=== PATIENT | female | born 1955 | race Caucasian/White ===

== ENCOUNTER 2016-10-04 14:39 | Emergency (ER) | payer OTHER ==
--- NOTE | 2016-10-04 15:31 | EDDOCDS ---
Physician Documentation [facility] Name: Rose Marie Kline Age: 61 yrs Sex: Female : 1955 Arrival Date: 10/04/2016 Time: 14:39 Bed TR7 Private MD: MADDISON MASTERS Disposition: 10/04/16 15:23 Discharged to Home/Self Care. Impression: Pain in left wrist - tendinitis, possible mild carpal tunnel syndrome. - Condition is Stable. - Discharge Instructions: Wrist Pain, [id number]. - Prescriptions for indomethacin 50 mg Oral Capsule - take 1 capsule by ORAL route 3 times per day with food; 15 capsule. - Medication Reconciliation, Local Pharmacy Hours form. - Follow up: MADDISON MASTERS; When: 1 week; Reason: Recheck today's complaints. - Problem is new. - Symptoms are unchanged. Historical: - Allergies: Ceftin (Rash, Anaphylaxis); Tylenol-Codeine #3 (Anaphylaxis); Latuda (Anaphylaxis, Hives); - Home Meds: 1. metformin 500 mg Oral tab 2 times per day 2. lisinopril 10 mg oral tab 3. Lipitor 10 mg Oral tab 1 tab once daily - PMHx: Hypertension; Diabetes - NIDDM: controlled; Hypercholesterolemia; - PSHx: D & C; Hysterectomy; Tonsillectomy; - Social history: Smoking status: Patient states former smoker of tobacco. No barriers to communication noted, The patient speaks fluent Latvian. - : The pt / caregiver states he / she is not on anticoagulants. Home medication list is obtained from the patient. - Exposure Risk Screening:: None identified. Vital Signs: 10/04 14:41 BP 149 / 69; Pulse 78; Resp 18; Temp 97.5(O); Pulse Ox 97% on R/A; Weight 107.05 kg / ct3 236 lbs (R); Height 5 ft. 6 in. (167.64 cm) (R); Pain 10/10; 14:41 Body Mass Index 38.09 (107.05 kg, 167.64 cm) ct3 Signatures: Noreen Chang RN RN jjBryan Begum PA-C PANedra ar2 Francoise LandaRN RN rs3 MTDD
--- NOTE | 2016-10-04 15:31 | EDDOCDS ---
Nurse's Notes [facility] Name: Rose Marie Kline Age: 61 yrs Sex: Female : 1955 Arrival Date: 10/04/2016 Time: 14:39 Bed TR7 Private MD: MADDISON MASTERS Diagnosis: Pain in left wrist-tendinitis, possible mild carpal tunnel syndrome Presentation: 10/04 14:43 Presenting complaint: Patient states: L wrist pain for 10 days. getting worse rs3 progressively. no known injury. taken Tylenol without any relief. Adult Sepsis Screening: The patient does not have new or worsening altered mentation. Patient's respiratory rate is less than 22. Systolic blood pressure is greater than 100. Patient has a qSOFA score of 0- Negative Sepsis Screen. Suicide/Homicide risk assessment- the patient denies having any suicidal and/or homicidal ideations and does not present with any other emotional, behavioral or mental health complaints. Status: Patient is not a community service officer coordinator or dependent. Transition of care: patient was not received from another setting of care. 14:43 Acuity: HUNG Level 4 rs3 14:43 Method Of Arrival: Wheelchair rs3 Triage Assessment: 14:47 General: Appears in no apparent distress. Pain: Location: left hand. HIV screening NA rs3 for this visit Offered previously. Musculoskeletal: No deficits noted. Historical: - Allergies: Ceftin (Rash, Anaphylaxis); Tylenol-Codeine #3 (Anaphylaxis); Latuda (Anaphylaxis, Hives); - Home Meds: 1. metformin 500 mg Oral tab 2 times per day 2. lisinopril 10 mg oral tab 3. Lipitor 10 mg Oral tab 1 tab once daily - PMHx: Hypertension; Diabetes - NIDDM: controlled; Hypercholesterolemia; - PSHx: D & C; Hysterectomy; Tonsillectomy; - Social history: Smoking status: Patient states former smoker of tobacco. No barriers to communication noted, The patient speaks fluent Italian. - : The pt / caregiver states he / she is not on anticoagulants. Home medication list is obtained from the patient. - Exposure Risk Screening:: None identified. Screenin:29 Screening information is obtained from the patient. Fall risk: No risks identified. jjr Assistance ADL's: requires no assistance with activities of daily living. Abuse/DV Screen: The patient / caregiver reports he/she is: not in a situation that causes fear, pain or injury. Nutritional screening: No deficits noted. Advance Directives: There is no active DNR order. home support is adequate. Assessment: 15:29 General: Appears in no apparent distress, obese, well nourished, well groomed, Behavior jjr is appropriate for age. Musculoskeletal: No deformity noted Reports pain in dorsal aspect of left wrist and palmar aspect of left wrist. Vital Signs: 14:41 BP 149 / 69; Pulse 78; Resp 18; Temp 97.5(O); Pulse Ox 97% on R/A; Weight 107.05 kg ct3 (R); Height 5 ft. 6 in. (167.64 cm) (R); Pain 10/10; 14:41 Body Mass Index 38.09 (107.05 kg, 167.64 cm) ct3 Vitals: 14:41 Log In Time: October 04, 2016 at 14:40. ct3 ED Course: 14:39 Patient visited by Giana Medina PCA. ct3 14:39 Patient moved to Waiting ct3 14:40 MADDISON MASTERS is Private Physician. ct3 14:42 Patient visited by Giana Medina PCA. ct3 14:42 Patient moved to Pre RCE ct3 14:44 Triage Initiated rs3 14:53 Patient moved to Triage 2 ar3 15:00 Bryan Bautista PA-C is PHCP. ar2 15:00 Marcel Gtz MD is Attending Physician. ar2 15:00 Patient visited by Bryan Bautista PA-C. ar2 15:23 MADDISON MASTERS is Referral Physician. ar2 15:28 Patient moved to TR1 jjr 15:29 Patient moved to TR7 ar3 15:29 The patient / caregiver is instructed regarding the plan of care and ED course. jjr 15:29 No IV's were initiated during this patient's visit. No procedures done that require jjr assistance. Order Results: There are currently no results for this order. Outcome: 15:23 Discharge ordered by Provider. ar2 15:29 Discharge Assessment: patient administered narcotics - no. The following High Risk jjr Discharge criteria are identified: None. Discharged to home ambulatory, with family. Condition: stable. Discharge instructions given to patient, Instructed on discharge instructions, follow up and referral plans. medication usage, angelo wrap use Demonstrated understanding of instructions, medications, Prescriptions given X 1. No special radiology studies were completed. Property sent home with patient. 15:30 Patient left the ED. luis a Signatures: Noreen Chang RN RN jjr Bryan Bautista, GAURAV PANedra ar2 Francoise Landa RN RN rs3 Rocío Rivera, PLANT TECHNICIAN/CONTROL ROOM OPERATOR PLANT TECHNICIAN/CONTROL ROOM OPERATOR ar3 Giana Medina, PLANT TECHNICIAN/CONTROL ROOM OPERATOR PLANT TECHNICIAN/CONTROL ROOM OPERATOR ct3 MTDD
--- NOTE | 2016-10-06 16:31 | EDDOCDS ---
Nurse's Notes [facility] Name: Rose Marie Kline Age: 61 yrs Sex: Female : 1955 Arrival Date: 10/04/2016 Time: 14:39 Bed TR7 Private MD: MADDISON MASTERS Diagnosis: Pain in left wrist-tendinitis, possible mild carpal tunnel syndrome Presentation: 10/04 14:43 Presenting complaint: Patient states: L wrist pain for 10 days. getting worse rs3 progressively. no known injury. taken Tylenol without any relief. Adult Sepsis Screening: The patient does not have new or worsening altered mentation. Patient's respiratory rate is less than 22. Systolic blood pressure is greater than 100. Patient has a qSOFA score of 0- Negative Sepsis Screen. Suicide/Homicide risk assessment- the patient denies having any suicidal and/or homicidal ideations and does not present with any other emotional, behavioral or mental health complaints. Status: Patient is not a nutritional services cook or dependent. Transition of care: patient was not received from another setting of care. 14:43 Acuity: HUNG Level 4 rs3 14:43 Method Of Arrival: Wheelchair rs3 Triage Assessment: 14:47 General: Appears in no apparent distress. Pain: Location: left hand. HIV screening NA rs3 for this visit Offered previously. Musculoskeletal: No deficits noted. Historical: - Allergies: Ceftin (Rash, Anaphylaxis); Tylenol-Codeine #3 (Anaphylaxis); Latuda (Anaphylaxis, Hives); - Home Meds: 1. metformin 500 mg Oral tab 2 times per day 2. lisinopril 10 mg oral tab 3. Lipitor 10 mg Oral tab 1 tab once daily - PMHx: Hypertension; Diabetes - NIDDM: controlled; Hypercholesterolemia; - PSHx: D & C; Hysterectomy; Tonsillectomy; - Social history: Smoking status: Patient states former smoker of tobacco. No barriers to communication noted, The patient speaks fluent Upper Sorbian. - : The pt / caregiver states he / she is not on anticoagulants. Home medication list is obtained from the patient. - Exposure Risk Screening:: None identified. Screenin:29 Screening information is obtained from the patient. Fall risk: No risks identified. jjr Assistance ADL's: requires no assistance with activities of daily living. Abuse/DV Screen: The patient / caregiver reports he/she is: not in a situation that causes fear, pain or injury. Nutritional screening: No deficits noted. Advance Directives: There is no active DNR order. home support is adequate. Assessment: 15:29 General: Appears in no apparent distress, obese, well nourished, well groomed, Behavior jjr is appropriate for age. Musculoskeletal: No deformity noted Reports pain in dorsal aspect of left wrist and palmar aspect of left wrist. Vital Signs: 14:41 BP 149 / 69; Pulse 78; Resp 18; Temp 97.5(O); Pulse Ox 97% on R/A; Weight 107.05 kg ct3 (R); Height 5 ft. 6 in. (167.64 cm) (R); Pain 10/10; 14:41 Body Mass Index 38.09 (107.05 kg, 167.64 cm) ct3 Vitals: 14:41 Log In Time: October 04, 2016 at 14:40. ct3 ED Course: 14:39 Patient visited by Giana Medina PCA. ct3 14:39 Patient moved to Waiting ct3 14:40 MADDISON MASTERS is Private Physician. ct3 14:42 Patient visited by Giana Medina PCA. ct3 14:42 Patient moved to Pre RCE ct3 14:44 Triage Initiated rs3 14:53 Patient moved to Triage 2 ar3 15:00 Bryan Bautista PA-C is PHCP. ar2 15:00 Marcel Gtz MD is Attending Physician. ar2 15:00 Patient visited by Bryan Bautista PA-C. ar2 15:23 MADDISON MASTERS is Referral Physician. ar2 15:28 Patient moved to TR1 jjr 15:29 Patient moved to TR7 ar3 15:29 The patient / caregiver is instructed regarding the plan of care and ED course. jjr 15:29 No IV's were initiated during this patient's visit. No procedures done that require jjr assistance. 15:38 [place] [place] was scanned into [email or web address] and attached to record. zo 18:27 T-Sheet-- Draft Copy was scanned into [email or web address] and attached to record. klr Order Results: There are currently no results for this order. Outcome: 15:23 Discharge ordered by Provider. ar2 15:29 Discharge Assessment: patient administered narcotics - no. The following High Risk jjr Discharge criteria are identified: None. Discharged to home ambulatory, with family. Condition: stable. Discharge instructions given to patient, Instructed on discharge instructions, follow up and referral plans. medication usage, angelo wrap use Demonstrated understanding of instructions, medications, Prescriptions given X 1. No special radiology studies were completed. Property sent home with patient. 15:30 Patient left the ED. jjr Signatures: Sameera Chavarria Jessica, RN RN jjr Bryan Bautista PA-C PA-C ar2 Francoise LandaRN RN rs3 Rocío Rivera, PROFESSIONAL HEALTHCARE REPRESENTATIVE PROFESSIONAL HEALTHCARE REPRESENTATIVE ar3 Giana Medina, PROFESSIONAL HEALTHCARE REPRESENTATIVE PROFESSIONAL HEALTHCARE REPRESENTATIVE ct3 Jaquelin Arevalo Chart Complete MTDD
--- NOTE | 2016-10-06 16:31 | EDDOCDS ---
Physician Documentation [facility] Name: Rose Marie Kline Age: 61 yrs Sex: Female : 1955 Arrival Date: 10/04/2016 Time: 14:39 Bed TR7 Private MD: MADDISON MASTERS Disposition: 10/04/16 15:23 Discharged to Home/Self Care. Impression: Pain in left wrist - tendinitis, possible mild carpal tunnel syndrome. - Condition is Stable. - Discharge Instructions: Wrist Pain, [id number]. - Prescriptions for indomethacin 50 mg Oral Capsule - take 1 capsule by ORAL route 3 times per day with food; 15 capsule. - Medication Reconciliation, Local Pharmacy Hours form. - Follow up: MADDISON MASTERS; When: 1 week; Reason: Recheck today's complaints. - Problem is new. - Symptoms are unchanged. Historical: - Allergies: Ceftin (Rash, Anaphylaxis); Tylenol-Codeine #3 (Anaphylaxis); Latuda (Anaphylaxis, Hives); - Home Meds: 1. metformin 500 mg Oral tab 2 times per day 2. lisinopril 10 mg oral tab 3. Lipitor 10 mg Oral tab 1 tab once daily - PMHx: Hypertension; Diabetes - NIDDM: controlled; Hypercholesterolemia; - PSHx: D & C; Hysterectomy; Tonsillectomy; - Social history: Smoking status: Patient states former smoker of tobacco. No barriers to communication noted, The patient speaks fluent Nepali. - : The pt / caregiver states he / she is not on anticoagulants. Home medication list is obtained from the patient. - Exposure Risk Screening:: None identified. Vital Signs: 10/04 14:41 BP 149 / 69; Pulse 78; Resp 18; Temp 97.5(O); Pulse Ox 97% on R/A; Weight 107.05 kg / ct3 236 lbs (R); Height 5 ft. 6 in. (167.64 cm) (R); Pain 10/10; 14:41 Body Mass Index 38.09 (107.05 kg, 167.64 cm) ct3 MDM: 15:38 [facility] Payment Agreement was scanned into [email or web address] and attached to record. zo 15:38 Financial registration complete. zo 18:27 T-Sheet-- Draft Copy was scanned into [email or web address] and attached to record. klr Signatures: Deon, Zoeann zo Bernardo, Noreen, RN RN jjr Bryan Bautista PA-C PANedra ar2 Francoise LandaRN RN rs3 Jaquelin Arevalo The chart was reviewed and I authenticate all verbal orders and agree with the evaluation and treatment provided.Attachments: 15:38 [place] [place] Payment Agreement zo 18:27 T-Sheet-- Draft Copy klr Chart Complete MTDD
--- NOTE | 2016-10-06 16:31 | EDDOCDS ---
Physician Documentation [facility] Name: Rose Marie Kline Age: 61 yrs Sex: Female : 1955 Arrival Date: 10/04/2016 Time: 14:39 Bed TR7 Private MD: MADDISON MASTERS Disposition: 10/04/16 15:23 Discharged to Home/Self Care. Impression: Pain in left wrist - tendinitis, possible mild carpal tunnel syndrome. - Condition is Stable. - Discharge Instructions: Wrist Pain, [id number]. - Prescriptions for indomethacin 50 mg Oral Capsule - take 1 capsule by ORAL route 3 times per day with food; 15 capsule. - Medication Reconciliation, Local Pharmacy Hours form. - Follow up: MADDISON MASTERS; When: 1 week; Reason: Recheck today's complaints. - Problem is new. - Symptoms are unchanged. Historical: - Allergies: Ceftin (Rash, Anaphylaxis); Tylenol-Codeine #3 (Anaphylaxis); Latuda (Anaphylaxis, Hives); - Home Meds: 1. metformin 500 mg Oral tab 2 times per day 2. lisinopril 10 mg oral tab 3. Lipitor 10 mg Oral tab 1 tab once daily - PMHx: Hypertension; Diabetes - NIDDM: controlled; Hypercholesterolemia; - PSHx: D & C; Hysterectomy; Tonsillectomy; - Social history: Smoking status: Patient states former smoker of tobacco. No barriers to communication noted, The patient speaks fluent Macedonian. - : The pt / caregiver states he / she is not on anticoagulants. Home medication list is obtained from the patient. - Exposure Risk Screening:: None identified. Vital Signs: 10/04 14:41 BP 149 / 69; Pulse 78; Resp 18; Temp 97.5(O); Pulse Ox 97% on R/A; Weight 107.05 kg / ct3 236 lbs (R); Height 5 ft. 6 in. (167.64 cm) (R); Pain 10/10; 14:41 Body Mass Index 38.09 (107.05 kg, 167.64 cm) ct3 MDM: 15:38 [facility] Payment Agreement was scanned into [email or web address] and attached to record. zo 15:38 Financial registration complete. zo 18:27 T-Sheet-- Draft Copy was scanned into [email or web address] and attached to record. klr Signatures: Deon, Zoeann zo Bernardo, Noreen, RN RN jjr Bryan Bautista PA-C PANedra ar2 Francoise LandaRN RN rs3 Jaquelin Arevalo The chart was reviewed and I authenticate all verbal orders and agree with the evaluation and treatment provided.Attachments: 15:38 [place] [place] zo 18:27 T-Sheet-- Draft Copy klr Chart Complete MTDD
== END 2016-10-04 15:30 | disposition home or self-care (01) ==
LOC: M ED 14:39
DX: M65.842 Other synovitis and tenosynovitis, left hand (principal); I10 Essential (primary) hypertension; E11.9 Type 2 diabetes mellitus without complications; E78.00 Pure hypercholesterolemia, unspecified; Z90.79 Acquired absence of other genital organ(s); Z90.89 Acquired absence of other organs; Z87.891 Personal history of nicotine dependence; Z79.899 Other long term (current) drug therapy; Z88.1 Allergy status to other antibiotic agents; Z88.5 Allergy status to narcotic agent; Z88.8 Allergy status to other drugs, medicaments and biological substances

== ENCOUNTER → 2016-10-08 | Outpatient (REF) | payer OTHER | LOC: M LAB REF 12:57 | PROVIDERS: ATTEND Internal Medicine Nephrology | DX: N39.0 Urinary tract infection, site not specified (principal); D41.00 Neoplasm of uncertain behavior of unspecified kidney; N18.2 Chronic kidney disease, stage 2 (mild) ==

== ENCOUNTER → 2016-10-13 | Outpatient (CLI) | payer OTHER ==
--- NOTE | 2016-10-13 14:05 | REP ---
Clinical: Chronic medical renal disease. Neoplasm. Technique: Real time ferraro scale ultrasound examination of the kidneys and bladder using curved array transducer. Findings: Bilateral kidneys are normal in contour, size, echogenicity and reniform shape without hydronephrosis, nephrolithiasis, cystic or renal mass lesion. Prominent central sinus fat is consistent with chronic medical renal disease. Right kidney measures 11.2 x 6.4 x 5.1 cm. Left kidney measures 13.0 x 5.1 x 5.9 cm. Bladder demonstrates mild wall thickening to 6.6 mm but is otherwise normal in appearance. Bilateral ureteral jets are identified. Prevoid volume equals 590 ml. Postvoid volume equals 48 ml. Postvoid residual equals 8.1%. Impression: 1. Kidneys demonstrate chronic medical renal disease without cyst or mass and no hydronephrosis. 2. Mild bladder wall thickening. Signed by Yoni Marlow MD 10/13/2016 01:56 P
== END ==
LOC: M RAD 12:35
PROVIDERS: ATTEND Internal Medicine Nephrology
DX: N18.1 Chronic kidney disease, stage 1 (principal); D41.00 Neoplasm of uncertain behavior of unspecified kidney; E11.9 Type 2 diabetes mellitus without complications

== ENCOUNTER → 2016-11-18 | Outpatient (REF) | payer OTHER | LOC: M LAB REF 15:28 | PROVIDERS: ATTEND Ophthalmology | DX: C44.301 Unspecified malignant neoplasm of skin of nose (principal) ==

== ENCOUNTER → 2016-12-15 | Outpatient (REF) | payer OTHER ==
[2016-12-15 14:30] LABS: BACTERIA, URINE SMALL AMOUNT; SQUAMOUS EPITHELIAL CELL URINE SMALL AMOUNT /hpf (SMALL AMT)
[2016-12-15 14:31] LABS: HYALINE CAST, URINE NONE SEEN /lpf (0-1); MICROSCOPIC EXAM PERFORMED
== END ==
LOC: M LAB REF 12:58
PROVIDERS: ATTEND Internal Medicine Nephrology
DX: R82.99 Other abnormal findings in urine (principal)

== ENCOUNTER → 2016-12-24 | Outpatient (CLI) | payer OTHER ==
[~2016-12-24] MED LIST: GASTROGRAFIN SOLUTION 30ML (Q9963) As Ordered ONE; ISOVUE-370 76% 100ML VIAL (Q9967) As Ordered ONE
--- NOTE | 2016-12-25 06:05 | REP ---
Clinical: Renal neoplasm. Technique: Axial precontrast, arterial phase, corticomedullary phase and delayed phase images of the abdomen with coronal and sagittal re-formations using 100 ml Isovue 370 intravenous contrast material. Findings: Evaluation of the kidneys in all phases of enhancement demonstrates a normal renal parenchyma and collecting system without nephrolithiasis, hydroureteronephrosis, perinephric stranding, significant cystic or mass lesion. Subcentimeter posterior lower pole left renal hypodensity compatible with cyst. Fatty infiltration the liver noted without focal hepatic lesion. Spleen, pancreas, gallbladder, and bilateral adrenal glands are normal. Visualized enteric system is without obstruction or acute inflammatory process. No ascites. No free air. No obvious adenopathy. Visualized vasculature is normal. Visualized osseous structures are intact without focal osseous abnormality. Lung bases clear. Impression: Subcentimeter left lower pole renal cyst. Otherwise normal pre and postcontrast CT of the abdomen. Signed by Yoni Marlow MD 12/25/2016 05:56 A
== END ==
LOC: M RAD 11:16
PROVIDERS: ATTEND Internal Medicine Nephrology
DX: N28.1 Cyst of kidney, acquired (principal); D41.00 Neoplasm of uncertain behavior of unspecified kidney; R82.99 Other abnormal findings in urine; E11.9 Type 2 diabetes mellitus without complications
CPT/HCPCS: 74170; Q9963; Q9967

== ENCOUNTER → 2017-04-05 | Outpatient (REF) | payer OTHER ==
[2017-04-05 14:24] LABS: RBC, URINE NONE SEEN /hpf (0-3); SQUAMOUS EPITHELIAL CELL URINE SMALL AMOUNT /hpf (SMALL AMT); WBC, URINE NONE SEEN /hpf (0-3)
[2017-04-05 14:25] LABS: HYALINE CAST, URINE NONE SEEN /lpf (0-1); MICROSCOPIC EXAM PERFORMED
[2017-04-05 14:26] LABS: BACTERIA, URINE MOD AMOUNT
== END ==
LOC: M LAB REF 13:07
PROVIDERS: ATTEND Internal Medicine Nephrology
DX: R82.99 Other abnormal findings in urine (principal)

== ENCOUNTER 2017-09-29 08:16 | Day surgery (SDC) | payer OTHER ==
[2017-09-29] MEDS: NS 1,000 ML IV (08:30)
[2017-09-29] MEDS ORDERED: LIDOCAINE 2% INJ 100 MG/5 ML SDV (FOR ANES.) As Ordered (09:19)
[2017-09-29] MEDS ORDERED: PROPOFOL 200 MG/20 ML VIAL As Ordered ×3 (09:19→09:38)
== END 2017-09-29 10:31 | disposition home or self-care (01) ==
LOC: M OPP 08:16
DX: Z12.11 Encounter for screening for malignant neoplasm of colon (principal); R13.10 Dysphagia, unspecified; K22.8 Other specified diseases of esophagus; K29.70 Gastritis, unspecified, without bleeding; I12.9 Hypertensive chronic kidney disease with stage 1 through stage 4 chronic kidney disease, or unspecified chronic kidney disease; E78.5 Hyperlipidemia, unspecified; E11.9 Type 2 diabetes mellitus without complications; N18.9 Chronic kidney disease, unspecified; R12 Heartburn; K21.9 Gastro-esophageal reflux disease without esophagitis; R06.02 Shortness of breath; M19.90 Unspecified osteoarthritis, unspecified site; M54.9 Dorsalgia, unspecified; R42 Dizziness and giddiness; F43.10 Post-traumatic stress disorder, unspecified; R06.83 Snoring; G47.30 Sleep apnea, unspecified; R32 Unspecified urinary incontinence; Z87.891 Personal history of nicotine dependence; Z88.1 Allergy status to other antibiotic agents; Z88.5 Allergy status to narcotic agent; Z88.8 Allergy status to other drugs, medicaments and biological substances; Z79.899 Other long term (current) drug therapy; Z79.84 Long term (current) use of oral hypoglycemic drugs
CPT/HCPCS: G0121

== ENCOUNTER 2017-10-08 13:04 | Emergency (ER) | payer OTHER | END 2017-10-08 16:30 | disposition home or self-care (01) | LOC: M ED 13:04 | DX: S76.811A Strain of other specified muscles, fascia and tendons at thigh level, right thigh, initial encounter (principal); W19.XXXA Unspecified fall, initial encounter; Y92.89 Other specified places as the place of occurrence of the external cause; I10 Essential (primary) hypertension; E78.5 Hyperlipidemia, unspecified; Z79.84 Long term (current) use of oral hypoglycemic drugs; Z79.899 Other long term (current) drug therapy; Z88.1 Allergy status to other antibiotic agents; Z88.5 Allergy status to narcotic agent; Z88.8 Allergy status to other drugs, medicaments and biological substances; Z98.890 Other specified postprocedural states | CPT/HCPCS: 99283 ==

== ENCOUNTER 2018-05-22 23:54 | Emergency (ER) | payer OTHER ==
[2018-05-23 01:13] LABS: BASO # 0.1 10^3/uL (0.0-0.2); BASO % 0.4 % (0.0-1.0); EOS # 0.1 10^3/uL (0.0-0.50); EOS % 0.8 % (0.0-3.0); HEMATOCRIT 39.4 % (36.0-47.0); HEMOGLOBIN 12.8 g/dl (12.0-15.5); IMMATURE GRANULOCYTE % 0.5 % (0-3.0); LYMPH # 2.8 10^3/uL (1.5-4.5); LYMPH % 18.2 % (24.0-44.0); MEAN CORPUSCULAR HEMOGLOBIN 30.1 pg (27.0-33.0); MEAN CORPUSCULAR HGB CONC 32.5 g/dl (32.0-36.5); MEAN CORPUSCULAR VOLUME 92.7 fl (80.0-96.0); MONO # 0.8 10^3/uL (0.0-0.8); MONO % 5.4 % (0.0-5.0); NEUTROPHILS # 11.6 10^3/uL (1.8-7.7); NEUTROPHILS % 74.7 % (36.0-66.0); PLATELET COUNT, AUTOMATED 288 10^3/uL (150-450); RED BLOOD COUNT 4.25 10^6/uL (4.00-5.40); RED CELL DISTRIBUTION WIDTH 13.4 % (11.5-14.5); WHITE BLOOD COUNT 15.5 10^3/uL (4.0-10.0)
[2018-05-23] MEDS: NS 1,000 ML IV (01:19)
[2018-05-23 01:46] LABS: ANION GAP 9 MEQ/L (8-16); BLOOD UREA NITROGEN 20 MG/DL (7-18); CALCIUM LEVEL 8.6 MG/DL (8.8-10.2); CARBON DIOXIDE LEVEL 28 MEQ/L (21-32); CHLORIDE LEVEL 101 MEQ/L (98-107); CPK CREATINE PHOSPHOKINASE 88 U/L (26-192); GLOMERULAR FILTRATION RATE > 60.0 (>45); GLUCOSE, FASTING 170 MG/DL (70-100); MAGNESIUM LEVEL 1.6 MG/DL (1.8-2.4); MB/CK RELATIVE INDEX 1.48 (< OR =4); POTASSIUM SERUM 3.9 MEQ/L (3.5-5.1); SODIUM LEVEL 138 MEQ/L (136-145); TROPONIN I < 0.02 NG/ML (< 0.10)
[2018-05-23] MEDS ORDERED: ISOVUE-370 76% 100ML VIAL (Q9967) As Ordered (01:52)
[2018-05-23] MEDS: MAG SULF 1GM/100ML (MAG RUN) 1 GM in APPROPRIATE DILUENT 1 EA IV (03:21)
[2018-05-23] MEDS: MAGNESIUM OXIDE 400 MG TAB (MAG-OX) PO (03:22)
== END 2018-05-23 04:31 | disposition home or self-care (01) ==
LOC: M ED 23:54
DX: E83.42 Hypomagnesemia (principal); R00.2 Palpitations; I45.10 Unspecified right bundle-branch block; Z88.5 Allergy status to narcotic agent; Z88.1 Allergy status to other antibiotic agents; Z88.8 Allergy status to other drugs, medicaments and biological substances; Z79.899 Other long term (current) drug therapy; Z79.84 Long term (current) use of oral hypoglycemic drugs
CPT/HCPCS: J3475

== ENCOUNTER → 2018-08-12 | Outpatient (REF) | payer OTHER ==
[~2018-08-12] MED LIST changes: +ATOR1TAB19 PO; +BACL10TA2 PO; +CELE50CA PO; -GASTROGRAFIN SOLUTION 30ML (Q9963) As Ordered ONE; -ISOVUE-370 76% 100ML VIAL (Q9967) As Ordered ONE; +LISI10TA4 PO; +MAGN400C PO; +MAGN400T5 PO; +METF500T13; +NITR100C2 PO; +ONDA4TAB6 PO; +PANT20TA2 PO; +PANT40TA3 PO; +PEPC1TAB5 PO; +POTA10808; +SIME40TA PO; +TRAM50TA2 PO; +VITA100067 PO; +ZOFR4TAB14 PO; +ZYLO300T6 PO
[2018-08-12 15:57] LABS: APPEARANCE, URINE HAZY (CLEAR); BACTERIA, URINE AUTO 1+ (NEGATIVE); BILIRUBIN, URINE AUTO NEGATIVE (NEGATIVE); BLOOD, URINE BLOOD NEGATIVE (NEGATIVE); COLOR, URINE YELLOW (YELLOW); GLUCOSE, URINE (UA) AUTO NEGATIVE (NEGATIVE); KETONE, URINE AUTO 1+ mg/dL (NEGATIVE); LEUKOCYTE ESTERASE, URINE AUTO 1+ (NEGATIVE); MUCUS, URINE SMALL (NEGATIVE); NITRITE, URINE AUTO NEGATIVE (NEGATIVE); PROTEIN, URINE AUTO NEGATIVE (NEGATIVE); RBC, URINE AUTO 3 /HPF (0-3); SPECIFIC GRAVITY URINE AUTO 1.014 (1.002-1.035); SQUAMOUS EPITHELIAL CELL UR AU 5 /HPF (0-6); UROBILINOGEN, URINE AUTO 0.2 mg/dL (0.0-2.0); WBC, URINE AUTO 42 /HPF (0-3)
== END ==
LOC: M LAB REF 15:19
PROVIDERS: ATTEND Surgery
DX: R19.7 Diarrhea, unspecified (principal); N39.0 Urinary tract infection, site not specified

== ENCOUNTER 2018-08-24 07:06 | Emergency (ER) | payer OTHER ==
[~2018-08-24] VITALS: Ht 157.5 cm; Wt 129.6 kg
[~2018-08-24 07:06] MED LIST changes: -MAGN400T5 PO; -NITR100C2 PO; -ONDA4TAB6 PO; -PEPC1TAB5 PO; -SIME40TA PO; -ZOFR4TAB14 PO
[2018-08-24] MEDS ORDERED: ZOFR4TAB14 PO (07:24)
[2018-08-24] MEDS ORDERED: SIME40TA PO (07:24)
[2018-08-24] MEDS ORDERED: PEPC1TAB5 PO (07:26)
[2018-08-24] MEDS ORDERED: NS IV ONE (07:45)
[2018-08-24] MEDS ORDERED: DILUENT IV ONE (07:45)
[2018-08-24 07:58] LABS: BASO % 0.1 % (0.0-1.0); EOS % 0.3 % (0.0-3.0); HEMATOCRIT 45.3 % (36.0-47.0); HEMOGLOBIN 14.2 g/dl (12.0-15.5); LYMPH # 0.3 10^3/uL (1.5-4.5); LYMPH % 3.4 % (24.0-44.0); MEAN CORPUSCULAR HEMOGLOBIN 29.5 pg (27.0-33.0); MEAN CORPUSCULAR HGB CONC 31.3 g/dl (32.0-36.5); MEAN CORPUSCULAR VOLUME 94.2 fl (80.0-96.0); MONO # 0.2 10^3/uL (0.0-0.8); MONO % 1.9 % (0.0-5.0); NEUTROPHILS # 8.1 10^3/uL (1.8-7.7); NEUTROPHILS % 94.1 % (36.0-66.0); PLATELET COUNT, AUTOMATED 255 10^3/uL (150-450); RED BLOOD COUNT 4.81 10^6/uL (4.00-5.40); WHITE BLOOD COUNT 8.6 10^3/uL (4.0-10.0)
--- NOTE | 2018-08-24 08:09 | REP ---
Portable chest x-ray: Single view. History: Sepsis. Shock. Comparison chest x-ray: May 31, 2013. Findings: The lungs are well inflated and clear. Pleural angles are sharp. Heart size is normal. Pulmonary vasculature is not increased. EKG monitoring electrodes overlie the chest. Impression: No active disease. Electronically Signed by Oscar Rasmussen MD 08/24/2018 08:00 A
[2018-08-24 08:40] LABS: ALBUMIN 3.6 GM/DL (3.2-5.2); ALT/SGPT 56 U/L (12-78); AMYLASE 48 U/L (25-115); BILIRUBIN,DIRECT 0.2 MG/DL (0.0-0.2); BILIRUBIN,TOTAL 0.7 MG/DL (0.2-1.0); BLOOD UREA NITROGEN 12 MG/DL (7-18); CALCIUM LEVEL 8.9 MG/DL (8.8-10.2); CARBON DIOXIDE LEVEL 27 MEQ/L (21-32); CHLORIDE LEVEL 99 MEQ/L (98-107); CK-MB VALUE MASS < 1.0 NG/ML (<3.6); CPK CREATINE PHOSPHOKINASE 93 U/L (26-192); CREATININE FOR GFR 1.23 MG/DL (0.55-1.30); GLOMERULAR FILTRATION RATE 46.9 (>45); GLUCOSE, FASTING 153 MG/DL (70-100); MB/CK RELATIVE INDEX 1.08 (< OR =4); POTASSIUM SERUM 4.6 MEQ/L (3.5-5.1); SODIUM LEVEL 136 MEQ/L (136-145); TOTAL PROTEIN 7.6 GM/DL (6.4-8.2); TROPONIN I < 0.02 NG/ML (< 0.10)
[2018-08-24] MEDS ORDERED: ISOVUE-370 76% 100ML VIAL (Q9967) As Ordered ONE (08:56)
[2018-08-24 09:22] LABS: APPEARANCE, URINE CLOUDY (CLEAR); BACTERIA, URINE AUTO 1+ (NEGATIVE); BILIRUBIN, URINE AUTO 1+ (NEGATIVE); BLOOD, URINE BLOOD NEGATIVE (NEGATIVE); COLOR, URINE AMBER (YELLOW); GLUCOSE, URINE (UA) AUTO NEGATIVE (NEGATIVE); KETONE, URINE AUTO TRACE mg/dL (NEGATIVE); LEUKOCYTE ESTERASE, URINE AUTO NEGATIVE (NEGATIVE); MUCUS, URINE LARGE (NEGATIVE); NITRITE, URINE AUTO NEGATIVE (NEGATIVE); PROTEIN, URINE AUTO 2+ mg/dL (NEGATIVE); RBC, URINE AUTO 9 /HPF (0-3); SPECIFIC GRAVITY URINE AUTO 1.026 (1.002-1.035); SQUAMOUS EPITHELIAL CELL UR AU 13 /HPF (0-6); WBC, URINE AUTO 4 /HPF (0-3)
[2018-08-24] MEDS: GASTROGRAFIN SOLUTION 30ML PO SCH ×2 (09:51→11:15)
[2018-08-24 10:08] LABS: VENOUS BASE EXCESS 1.5 (-2.0-2.0); VENOUS HCO3 27.3 MEQ/L (23.0-27.0); VENOUS O2 SATURATION 89.6 % (60.0-80.0); VENOUS PARTIAL PRESSURE CO2 47.6 mmHg (38.0-50.0); VENOUS PARTIAL PRESSURE O2 55.9 mmHg (30.0-50.0); VENOUS PH 7.377 UNITS (7.330-7.430); VENOUS STANDARD HCO3 25.6 MEQ/L; VENOUS TOTAL CO2 28.8 MEQ/L (24.0-28.0)
--- NOTE | 2018-08-24 12:50 | REP ---
CT ABDOMEN AND PELVIS WITH IV AND ORAL CONTRAST: HISTORY: Recent gastric bypass. Abdominal pain and vomiting. Comparison CT study December 24, 2016. Comparison chest CT study May 23, 2018. CT CONTRAST DOSE: 100 mL of intravenous Isovue 370. CT FINDINGS: There is mild diffuse fatty infiltration of the liver. There is a tiny fluid collection adjacent to the left lobe of the liver, 1.4 cm in diameter. This may be a postoperative fluid collection or a tiny abscess. It was not apparent on May 23, 2018 or December 2016. No other abnormal fluid collection is seen. The patient status post gastric bypass procedure. Gastrojejunostomy is anti-colic. No evidence of obstruction is seen. No other abnormal fluid collection is seen in the abdomen. The uterus is surgically absent. Urinary bladder is unremarkable. No hydronephrosis is seen. The kidneys enhance symmetrically and are morphologically intact. No focal hepatic or splenic lesion is seen. Pancreas is unremarkable. The gallbladder shows no abnormality. IMPRESSION: Status post gastric bypass procedure in the interval since the May 23, 2018 CT imaging. There is a 14 mm fluid collection adjacent to the left lobe of the liver which may be a postoperative fluid collection or tiny abscess. Fatty infiltration of the liver is seen. No other acute intra-abdominal abnormality. Electronically Signed by Oscar Rasmussen MD 08/24/2018 06:47 P
[2018-08-24] MEDS ORDERED: IMIPENEM/CILASTATIN 500 MG in D5W MINI-BAG PLUS 100 ML IV ONE (13:15)
[2018-08-24] MEDS ORDERED: metroNIDAZOLE 500 MG in APPROPRIATE DILUENT 1 EA IV ONE (13:15)
[2018-08-24] MEDS ORDERED: MULTIVITAMIN -ADULT INJECTION 10 ML, THIAMINE INJection 100 MG, FOLIC ACID 1 MG in NS 1... IV ONE (13:45)
--- NOTE | 2018-08-24 14:14 | REP ---
Duplex extremity venous ultrasound: Bilateral lower extremity rakesh History: At lower extremity swelling. Question DVT. Findings: The deep veins are anechoic and fully compressible from the groin to the popliteal fossa in the left and right lower extremity. Color flow imaging is homogeneous. Spectral Doppler interrogation demonstrates intact respiratory variation in flow and normal manual augmentation of flow. There is no evidence of deep vein thrombosis. Impression: Negative bilateral lower extremity duplex venous ultrasound. No evidence of deep vein thrombosis. Electronically Signed by Oscar Rasmussen MD 08/24/2018 02:06 P
[2018-08-24 18:37] VITALS: BP 100/52
--- NOTE | 2018-08-24 20:18 | ECGEPIP ---
Stationary ECG Study [facility] - ED Test Date: 2018-08-24 Pat Name: CHANCE ROE Department: Room: - Gender: F Secondary Set Up Man: TC : 1955 Requested By: Viviane Majano Order Number: [id number] Reading MD: Viviane Majano Measurements Intervals [place] Rate: 119 P: 56 PA: 116 QRS: 62 QRSD: 146 T: 24 QT: 326 QTc: 460 Interpretive Statements SINUS TACHYCARDIA WITH SHORT PA INTERVAL INTRAVENTRICULAR CONDUCTION DELAY POSSIBLE INFERIOR MYOCARDIAL INFARCTION, PROBABLY OLD WITH POSTERIOR EXTENSION INCREASED RATE 05/23/18 Electronically Signed On 08-24-2018 20:18:34 EST by Viviane Majano
== END 2018-08-24 18:41 | disposition short-term general hospital (02) ==
LOC: M ED 07:06 → EDBD 07:06 → M ED 18:41
DX: K91.89 Other postprocedural complications and disorders of digestive system (principal); R11.2 Nausea with vomiting, unspecified; R00.0 Tachycardia, unspecified; I45.10 Unspecified right bundle-branch block; E11.9 Type 2 diabetes mellitus without complications; I12.9 Hypertensive chronic kidney disease with stage 1 through stage 4 chronic kidney disease, or unspecified chronic kidney disease; E78.5 Hyperlipidemia, unspecified; G47.33 Obstructive sleep apnea (adult) (pediatric); N18.9 Chronic kidney disease, unspecified; Z87.891 Personal history of nicotine dependence; Z88.5 Allergy status to narcotic agent; Z88.1 Allergy status to other antibiotic agents; Z88.8 Allergy status to other drugs, medicaments and biological substances; Z79.899 Other long term (current) drug therapy
CPT/HCPCS: 71045; 74177; 80048; 80076; 81001; 82150; 82550; 82553; 82803; 83605; 85025; 86850; 86900; 86901; 87040; 87086; 87486; 87581; 87633; 87798; 93005; 93041; 93970; 96361; 96365; 96375; 99285; J3411; Q9963; Q9967

== ENCOUNTER 2018-08-27 18:11 | Emergency (ER) | payer OTHER ==
[~2018-08-27] VITALS: Ht 157.5 cm; Wt 129.6 kg
[~2018-08-27 18:11] MED LIST changes: +PEPC1TAB5 PO; +SIME40TA PO; +ZOFR4TAB14 PO
[2018-08-27] MEDS ORDERED: ONDANSETRON 4MG/2ML VIAL (J2405) IV ONE (19:15)
[2018-08-27] MEDS ORDERED: NS 1,000 ML IV SCH (19:15)
[2018-08-27 19:58] LABS: HEMATOCRIT 42.8 % (36.0-47.0); HEMOGLOBIN 13.8 g/dl (12.0-15.5); MEAN CORPUSCULAR HEMOGLOBIN 29.7 pg (27.0-33.0); MEAN CORPUSCULAR HGB CONC 32.2 g/dl (32.0-36.5); PLATELET COUNT, AUTOMATED 252 10^3/uL (150-450); RED BLOOD COUNT 4.65 10^6/uL (4.00-5.40); WHITE BLOOD COUNT 6.2 10^3/uL (4.0-10.0)
[2018-08-27 20:01] LABS: INR 0.94; PARTIAL THROMBOPLASTIN TIME 20.3 SECONDS (25.4-37.6); PROTHROMBIN TIME 12.6 SECONDS (12.1-14.4)
[2018-08-27 20:23] LABS: ALBUMIN 3.3 GM/DL (3.2-5.2); ALT/SGPT 157 U/L (12-78); AMYLASE 32 U/L (25-115); BILIRUBIN,DIRECT 0.6 MG/DL (0.0-0.2); BILIRUBIN,TOTAL 1.1 MG/DL (0.2-1.0); BLOOD UREA NITROGEN 9 MG/DL (7-18); CARBON DIOXIDE LEVEL 28 MEQ/L (21-32); CHLORIDE LEVEL 103 MEQ/L (98-107); CREATININE FOR GFR 0.98 MG/DL (0.55-1.30); GLOMERULAR FILTRATION RATE > 60.0 (>45); GLUCOSE, FASTING 134 MG/DL (70-100); LIPASE 79 U/L (73-393); MAGNESIUM LEVEL 1.3 MG/DL (1.8-2.4); POTASSIUM SERUM 4.3 MEQ/L (3.5-5.1); SODIUM LEVEL 141 MEQ/L (136-145); TOTAL PROTEIN 6.4 GM/DL (6.4-8.2)
[2018-08-27] MEDS ORDERED: NS IV ONE (20:30)
[2018-08-27] MEDS ORDERED: DILUENT IV ONE (20:30)
[2018-08-27 20:37] LABS: EOSINOPHILS 1 % (0-5); LYMPHOCYTES 2 % (16-52); MONOCYTES 2 % (0-8); NEUTROPHILS 85 % (35-75)
[2018-08-27 20:38] LABS: PLATELET ESTIMATE NORMAL (NORMAL)
[2018-08-27] MEDS: GASTROGRAFIN SOLUTION 30ML PO SCH ×2 (20:38→21:10)
[2018-08-27] MEDS ORDERED: MAG SULF 1GM/100ML (MAG RUN) 1 GM in APPROPRIATE DILUENT 1 EA IV ONE (21:00)
[2018-08-27] MEDS ORDERED: IMIPENEM/CILASTATIN 500 MG in D5W MINI-BAG PLUS 100 ML IV ONE (21:00)
[2018-08-27] MEDS ORDERED: ISOVUE-370 76% 100ML VIAL (Q9967) As Ordered ONE (21:44)
[2018-08-27] MEDS ORDERED: metroNIDAZOLE 750 MG in APPROPRIATE DILUENT 1 EA IV ONE (22:00)
--- NOTE | 2018-08-27 22:56 | REPVR ---
EXAM: CT Abdomen and Pelvis With Contrast EXAM DATE/TIME: 08/27/2018 9:48 PM CLINICAL HISTORY: 63 years old, female; Pain and condition or disease; Abscess; Abscess location: Abd; Abdominal pain; Generalized; Additional info: Abdominal pain, h/o abdominal abscess (08/24/2017) TECHNIQUE: Axial computed tomography images of the abdomen and pelvis with intravenous contrast. All CT scans at this facility use at least one of these dose optimization techniques: automated exposure control; mA and/or kV adjustment per patient size (includes targeted exams where dose is matched to clinical indication); or iterative reconstruction. Coronal and sagittal reformatted images were created and reviewed. CONTRAST: 100 ml of ISOVUE 370 administered intravenously. COMPARISON: CT ABD/PEL W/IV ORAL CONTRAS 08/24/2018 11:58 AM FINDINGS: Lower thorax: Bilateral mild groundglass densities in the lungs may represent mild edema. ABDOMEN: Liver: Liver is enlarged with fatty infiltration. Gallbladder and bile ducts: Distended gallbladder. Pancreas: Mild atrophy of the pancreas. Spleen: Normal. No splenomegaly. Adrenals: Normal. No mass. Kidneys and ureters: Normal. No hydronephrosis. Stomach and bowel: Status post gastric bypass surgery. No bowel dilatation or obstruction. Appendix: No evidence of appendicitis. PELVIS: Bladder: Urinary bladder is not well distended, otherwise unremarkable. Reproductive: Status post hysterectomy. ABDOMEN and PELVIS: Intraperitoneal space: Normal. No free air. No significant fluid collection. Bones/joints: Degenerative changes. Soft tissues: Multiple nodular densities in the abdomen likely injection site. Vasculature: Mild atherosclerosis. Lymph nodes: Normal. No enlarged lymph nodes. IMPRESSION: Enlarged fatty liver. Distended gallbladder without any calcified stones. No acute No acute finding. Electronically signed by: Rea Martines On 08/27/2018 22:55:34 PM
--- NOTE | 2018-08-27 23:14 | REPVR ---
EXAM: CT Chest With Contrast EXAM DATE/TIME: 08/27/2018 9:48 PM CLINICAL HISTORY: 63 years old, female; Signs and symptoms; Cough; Additional info: Cough, recent surgery and abdominal abscess TECHNIQUE: Axial computed tomography images of the chest with intravenous contrast. All CT scans at this facility use at least one of these dose optimization techniques: automated exposure control; mA and/or kV adjustment per patient size (includes targeted exams where dose is matched to clinical indication); or iterative reconstruction. Coronal and sagittal reformatted images were created and reviewed. CONTRAST: 100 ml of ISOVUE 370 administered intravenously. COMPARISON: CT ANGIO CHEST 05/23/2018 1:54 AM FINDINGS: Thyroid: Thyroid gland without a discrete nodule. Lungs: Mild groundglass densities in bilateral lungs likely dependent edema. Low lung volumes. No focal consolidation. Pleural space: Normal. No pneumothorax. No pleural effusion. Heart: Normal. No cardiomegaly. No pericardial effusion. Aorta: Normal. No aortic aneurysm. Lymph nodes: Few enlarged mediastinal lymph nodes measuring up to 10 mm. Bones/joints: Degenerative changes. Soft tissues: Unremarkable. Upper abdomen: Elevation of right hemidiaphragm. IMPRESSION: Mild groundglass densities in bilateral lungs likely dependent edema. Low lung volumes. No focal consolidation. Electronically signed by: Rea Martines On 08/27/2018 23:13:38 PM
[2018-08-28] MEDS ORDERED: PANTOPRAZOLE 40MG INJ (PROTONIX) (C9113) IV ONE
[2018-08-28] MEDS ORDERED: SUCRALFATE 1 GM TAB PO ONE
[2018-08-28] MEDS ORDERED: miSOPROStol 25 MCG 1/4 TAB (S0191) PO ONE
[2018-08-28 04:30] VITALS: BP 110/57
[2018-08-28] MEDS ORDERED: ZOFR4TAB14 PO (05:04)
--- NOTE | 2018-08-28 06:01 | ECGEPIP ---
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
[2018-08-29] MEDS ORDERED: ONDA4TAB6 PO (02:53)
[2018-08-29] MEDS ORDERED: MAGN400T5 PO (02:53)
[2018-08-29] MEDS ORDERED: NITR100C2 PO (02:54)
== END 2018-08-28 05:27 | disposition home or self-care (01) ==
LOC: M ED 18:11
DX: R10.9 Unspecified abdominal pain (principal); Z98.890 Other specified postprocedural states; R74.0 Nonspecific elevation of levels of transaminase and lactic acid dehydrogenase [LDH]; R00.0 Tachycardia, unspecified; Z98.84 Bariatric surgery status; E11.9 Type 2 diabetes mellitus without complications; I12.9 Hypertensive chronic kidney disease with stage 1 through stage 4 chronic kidney disease, or unspecified chronic kidney disease; E78.5 Hyperlipidemia, unspecified; N18.9 Chronic kidney disease, unspecified; G47.33 Obstructive sleep apnea (adult) (pediatric); Z87.891 Personal history of nicotine dependence; Z88.5 Allergy status to narcotic agent; Z88.8 Allergy status to other drugs, medicaments and biological substances; Z88.1 Allergy status to other antibiotic agents; Z79.899 Other long term (current) drug therapy
CPT/HCPCS: 36415; 71260; 74177; 80048; 80076; 82150; 83605; 83690; 83735; 85025; 85610; 85730; 87040; 93005; 93041; 96374; 96375; 99285; C9113; J2405; J3475; Q9963; Q9967

== ENCOUNTER 2018-08-28 22:29 | Inpatient (IN) | payer OTHER ==
[~2018-08-28] VITALS: Ht 157.5 cm; Wt 135.3 kg
[2018-08-28 23:26] LABS: BASO % 0.3 % (0.0-1.0); EOS # 0.1 10^3/uL (0.0-0.50); EOS % 2.1 % (0.0-3.0); HEMATOCRIT 43.1 % (36.0-47.0); HEMOGLOBIN 13.6 g/dl (12.0-15.5); LYMPH % 3.7 % (24.0-44.0); MEAN CORPUSCULAR HEMOGLOBIN 29.6 pg (27.0-33.0); MEAN CORPUSCULAR HGB CONC 31.6 g/dl (32.0-36.5); MEAN CORPUSCULAR VOLUME 93.9 fl (80.0-96.0); MONO % 0.5 % (0.0-5.0); NEUTROPHILS # 3.5 10^3/uL (1.8-7.7); NEUTROPHILS % 92.9 % (36.0-66.0); RED BLOOD COUNT 4.59 10^6/uL (4.00-5.40); WHITE BLOOD COUNT 3.8 10^3/uL (4.0-10.0)
[2018-08-28 23:46] LABS: LYMPH # 0.1 10^3/uL (1.5-4.5)
[2018-08-28 23:54] LABS: BILIRUBIN,DIRECT 0.9 MG/DL (0.0-0.2); BILIRUBIN,TOTAL 1.5 MG/DL (0.2-1.0); CALCIUM LEVEL 8.1 MG/DL (8.8-10.2); CREATININE FOR GFR 1.15 MG/DL (0.55-1.30); GLOMERULAR FILTRATION RATE 50.7 (>45); POTASSIUM SERUM 4.1 MEQ/L (3.5-5.1); TOTAL PROTEIN 5.8 GM/DL (6.4-8.2)
[2018-08-29] VITALS (12 sets, daily range): BP systolic 89–128; BP diastolic 42–79
[2018-08-29] MEDS ORDERED: ACETAMINOPHEN 325 MG TAB PO ONE
[2018-08-29] MEDS ORDERED: NS 1,000 ML IV ONE ×4 (01:00→02:45)
[2018-08-29] MEDS ORDERED: PIPERACILLIN/TAZOBACTAM SOD 3.375 GM in D5W MINI-BAG PLUS 50 ML IV ONE (01:00)
[2018-08-29] MEDS ORDERED: IMIPENEM/CILASTATIN 500 MG in D5W MINI-BAG PLUS 100 ML IV ONE (01:15)
[2018-08-29] MEDS ORDERED: VANCOMYCIN HCL 1,000 MG, VIAL MATE ADAPTER 1 EACH in D5W 250 ML IV ONE (01:15)
[2018-08-29 02:53] LABS: APPEARANCE, URINE HAZY (CLEAR); BACTERIA, URINE AUTO 1+ (NEGATIVE); BILIRUBIN, URINE AUTO NEGATIVE (NEGATIVE); BLOOD, URINE BLOOD NEGATIVE (NEGATIVE); COLOR, URINE AMBER (YELLOW); GLUCOSE, URINE (UA) AUTO NEGATIVE (NEGATIVE); KETONE, URINE AUTO NEGATIVE (NEGATIVE); LEUKOCYTE ESTERASE, URINE AUTO TRACE (NEGATIVE); MUCUS, URINE SMALL (NEGATIVE); NITRITE, URINE AUTO NEGATIVE (NEGATIVE); PROTEIN, URINE AUTO 1+ mg/dL (NEGATIVE); RBC, URINE AUTO 1 /HPF (0-3); RENAL EPITHELIAL CELLS 1 /HPF; SPECIFIC GRAVITY URINE AUTO 1.019 (1.002-1.035); SQUAMOUS EPITHELIAL CELL UR AU 0 /HPF (0-6); TRANSITIONAL EPITHELIAL AUTO <1 /HPF; WBC, URINE AUTO 4 /HPF (0-3)
[2018-08-29] MEDS ORDERED: MAGN400T5 PO (02:53)
[2018-08-29] MEDS ORDERED: ONDA4TAB6 PO (02:53)
[2018-08-29] MEDS ORDERED: NITR100C2 PO (02:54)
[2018-08-29] MEDS ORDERED: ACETAMINOPHEN TAB 650MG DOSE (2X325MG) PO PRN (03:15)
[2018-08-29] MEDS ORDERED: ONDANSETRON 4 MG TAB (S0181) PO PRN (03:15)
[2018-08-29] MEDS ORDERED: NS 1,000 ML IV SCH (03:15)
[2018-08-29] MEDS: HEPARIN SOD (PORCINE) 5000 UNITS/ML VIAL SC SCH ×3 (05:04→21:47)
--- NOTE | 2018-08-29 05:05 | REPVR ---
EXAM: US Right Duplex Lower Extremity Veins, Limited EXAM DATE/TIME: 08/29/2018 4:47 AM CLINICAL HISTORY: 63 years old, female; Pain; Leg, lower; Right; Additional info: Right calf pain TECHNIQUE: Real-time Duplex ultrasound of the Right Lower Extremity with 2-D ferraro scale, color Doppler flow and spectral waveform analysis. Limited exam was focused on the right lower extremity veins. COMPARISON: US Duplex, Ext LOWER veins, bilat 08/24/2018 1:33 PM FINDINGS: Right deep veins: Unremarkable. The common femoral, femoral and popliteal veins are patent without thrombus. Normal compressibility, augmentation response and Doppler waveforms. Right superficial veins: Unremarkable. Saphenofemoral junction is patent without thrombus. Soft tissues: No popliteal cyst. IMPRESSION: No evidence of deep venous thrombosis in the right common femoral to right popliteal veins. Electronically signed by: Yoni Cummings On 08/29/2018 05:05:11 AM
--- NOTE | 2018-08-29 05:13 | REPVR ---
EXAM: US Abdomen Limited, Right Upper Quadrant EXAM DATE/TIME: 08/29/2018 4:47 AM CLINICAL HISTORY: 63 years old, female; Abnormal findings; Abnormal lab test; Abnormal kidney function lab tests; Prior surgery; Surgery date: <1 month; Surgery type: Gastric bypass, hernia repairs; Additional info: Trasnsaminitis TECHNIQUE: Real-time ultrasound of the abdomen with image documentation. Examination was focused on the right upper quadrant. COMPARISON: CT ABD/PEL W/IV ORAL CONTRAS 08/27/2018 9:41 PM FINDINGS: Limitations: Portions of the pancreas sought but not seen due to bowel gas. Liver: Hepatic steatosis. No masses. Gallbladder: No gallstones. There is no gallbladder wall thickening. Gallbladder wall measures 1.1 mm. Common bile duct: Normal. No stones. No dilation. Common bile duct measures 5.8 mm. Pancreas: Visualized pancreas is unremarkable. Portions of the pancreas sought but not seen due to bowel gas. Right kidney: The right kidney measures 11.9 x 5.2 x 5.4 cm. No suspicious mass. No hydronephrosis. IMPRESSION: Hepatic stenosis. No hepatic mass. The gallbladder, common bile duct and visualized portions of the pancreas unremarkable. Portions of the pancreas sought but not seen due to overlying bowel gas. No suspicious right renal mass. No hydronephrosis. Electronically signed by: Yoni Cummings On 08/29/2018 05:13:12 AM
[2018-08-29 05:32] LABS: BASO % 0.2 % (0.0-1.0); EOS # 0.1 10^3/uL (0.0-0.50); EOS % 0.5 % (0.0-3.0); HEMATOCRIT 36.2 % (36.0-47.0); LYMPH % 1.4 % (24.0-44.0); MEAN CORPUSCULAR HEMOGLOBIN 29.9 pg (27.0-33.0); MEAN CORPUSCULAR HGB CONC 31.5 g/dl (32.0-36.5); MONO # 0.8 10^3/uL (0.0-0.8); MONO % 5.4 % (0.0-5.0); NEUTROPHILS # 12.8 10^3/uL (1.8-7.7); NEUTROPHILS % 91.6 % (36.0-66.0); RED BLOOD COUNT 3.81 10^6/uL (4.00-5.40)
[2018-08-29 05:39] LABS: LYMPH # 0.2 10^3/uL (1.5-4.5)
[2018-08-29 05:40] LABS: HEMOGLOBIN 11.4 g/dl (12.0-15.5)
[2018-08-29] MEDS: HumaLOG INSULIN (NovoLOG) PER UNIT SC SCH ×4 (06:00→20:46)
[2018-08-29 06:02] LABS: CALCIUM LEVEL 7.1 MG/DL (8.8-10.2); CREATININE FOR GFR 1.24 MG/DL (0.55-1.30); GLOMERULAR FILTRATION RATE 46.5 (>45); MAGNESIUM LEVEL 1.4 MG/DL (1.8-2.4); POTASSIUM SERUM 3.5 MEQ/L (3.5-5.1); THYROID STIMULATING HORMONE 0.238 uIU/ML (0.358-3.740)
[2018-08-29] MEDS ORDERED: NS 1,000 ML IV STA (06:33)
[2018-08-29] MEDS ORDERED: PIPERACILLIN/TAZOBACTAM SOD 3.375 GM in D5W MINI-BAG PLUS 50 ML IV SCH (06:45)
--- NOTE | 2018-08-29 06:51 | HPEPDOC ---
[facility] Medical History & Physical History and Physical CHIEF COMPLAINT: [CHILLS//RIGORS//GENERALIZED WEAKNESS] HISTORY OF PRESENT ILLNESS: This is a 63 yo female with pmhx of DM2 and morbid obesity who presented to the ED for chills, rigors and generalized weakness which started yesterday. She said she was being treated for UTI but has not completed the treatment , and she is unsure when she started the treatment . She also did vomit (NBNB) yesterday and today , but has been able to keep some food down as well She denied fever, chest pain, sob, headache, abd pain, dysuria, hematuria, or diarrhea. She had one episode of soft stool yesterday. Of note Patient had gastric bypass Aug 01, 2018 and was Dc on Aug 08. Since Wednesday of this week she hasn't been feeling well. She went back to the hospital where she did the surgery and was told that if they kept her there, her insurance would not pay for the visit so she would have to pay out of pocket so she left. She came here on the night of the for the chills//rigors , was given ivf and abx and sent home, but on the the symptoms got worse so she came back here. PAST MEDICAL HISTORY: morbid obesity DM2 PAST SURGICAL HISTORY: gastric bypass aug 01 2018 SOCIAL HISTORY: Marital status: [yes]. Resides in: [at home ] Tobacco use:[no] ETOH: [no] Illicit drug use: [no] IV drug use: no] ALLERGIES: Please see below. HOME MEDICATIONS: Please see below. ROS - all 14 point review of system is negative except for whats listed in HPI Physical exam Gen: NAD, morbidily obese HEENT: normocephalic , atraumatic, no discharge from ears or nose, no oropharyngeal erythema or exudate, neck is supple, no lymphadenopathy, trachea midline CVS: RRR, normal S1n S2, no murmurs, rubs, or gallops, no edema, no jvd Resp: LCTAB (anterior auscultation because pt had to stay in set positive for iv access to work while receiving iv abx ) no rhochi, wheezes or crackles Abd : soft , epigastric tenderness, normal bowel sounds, no rebound tenderness or guarding MSK: no swelling, full range of motion, strength 5/5 Neuro: AOAx3, no confusion, no focal deficit Psych: normal mood and affect, good judgment LABORATORY DATA: See below. ekg - old RBBB, unchanjged , 106bpm IMAGING: Venous doppler - No evidence of deep venous thrombosis in the right common femoral to right popliteal veins abd sono - hepatic steatosis, gall bladder and pancreas wnl , some areas of pa ncreas was not visualized CT abd and pelvis: Enlarged fatty liver.Distended gallbladder without any calcified stones. No acute No acute finding. CT chest :Mild groundglass densities in bilateral lungs likely dependent edema. Low lung volumes. No focal consolidation. cxr read pending MICROBIOLOGY: Please see below. ASSESSMENT: Septic -- source is unknown at this time . tsh low worsened dizziness//vertigo since surgery gout HLD PLAN: f/u urine cx f/u blood cx c/w vanc and isabella f/u hepatitis panel f/u free t4 echo - abnl ekg f/u ct brain hold bp meds in light of sepsis, continue with other home meds (except prn) check hba1c ISS hypoglycemic protocol dvt ppx full code , from home , no svc Vital Signs Vital Signs Date Time Temp Pulse Resp B/P (MAP) Pulse Ox O2 Delivery O2 Flow Rate FiO2 08/29/18 03:05 93 122/55 (77) 98 08/29/18 01:49 Nasal Cannula 2.0 08/28/18 22:29 100.8 16 Laboratory Data Labs 24H Laboratory Tests 2 08/28/18 23:15: Immature Granulocyte % (Auto) 0.5, White Blood Count 3.8L, Red Blood Count 4.59, Hemoglobin 13.6, Hematocrit 43.1, Mean Corpuscular Volume 93.9, Mean Corpuscular Hemoglobin 29.6, Mean Corpuscular Hemoglobin Concent 31.6L, Red Cell Distribution Width 14.2, Platelet Count , Neutrophils (%) (Auto) 92.9H, Lymphocytes (%) (Auto) 3.7L, Monocytes (%) (Auto) 0.5, Eosinophils (%) (Auto) 2.1, Basophils (%) (Auto) 0.3, Neutrophils # (Auto) 3.5, Lymphocytes # (Auto) 0.1L, Monocytes # (Auto) 0.0, Eosinophils # (Auto) 0.1, Basophils # (Auto) 0.0, Nucleated Red Blood Cells % (auto) 0.0, Anion Gap 11, Glomerular Filtration Rate 50.7, Calcium Level 8.1L, Aspartate Amino Transf (AST/SGOT) 266H, Alanine Aminotransferase (ALT/SGPT) 171H, Alkaline Phosphatase 402H, Total Bilirubin 1.5H, Direct Bilirubin 0.9H, Total Creatine Kinase 139, Total Protein 5.8L, Albumin 3.0L, Albumin/Globulin Ratio 1.07, Lipase 66L 08/29/18 00:00: Lactic Acid Level 3.3*H 08/29/18 02:33: Urine Appearance HAZY, Urine Color SONA, Urine pH 5.0, Urine Specific [place] 1.019, Urine Protein 1+H, Urine Glucose (UA) NEGATIVE, Urine Ketones NEGATIVE, Urine Urobilinogen 2.0H, Urine Bilirubin NEGATIVE, Urine Leukocyte Esterase TRACEH, Urine Blood NEGATIVE, Urine Nitrite NEGATIVE, Urine WBC (Auto) 4H, Urine RBC (Auto) 1, Urine Hyaline Casts (Auto) 0, Urine Bacteria (Auto) 1+H, Urine Squamous Epithelial Cells 0, Urine Transitional Epithelial Cells <1, Urine Renal Epithelial Cells 1, Urine Mucus (Auto) SMALL, Urine Sperm (Auto) CBC/BMP Laboratory Tests 08/28/18 23:15 Red Blood Count 4.59, Mean Corpuscular Volume 93.9, Mean Corpuscular Hemoglobin 29.6, Mean Corpuscular Hemoglobin Concent 31.6 L, Red Cell Distribution Width 14.2, Neutrophils (%) (Auto) 92.9 H, Lymphocytes (%) (Auto) 3.7 L, Monocytes (%) (Auto) 0.5, Eosinophils (%) (Auto) 2.1, Basophils (%) (Auto) 0.3, Neutrophils # (Auto) 3.5, Lymphocytes # (Auto) 0.1 L, Monocytes # (Auto) 0.0, Eosinophils # (A uto) 0.1, Basophils # (Auto) 0.0 Microbiology Microbiology 08/29/18 Blood Culture, Received Pending 08/29/18 Urine Culture, Received Pending Home Medications Scheduled Allopurinol (Zyloprim) 300 Mg Tab, 150 MG PO DAILY Atorvastatin Calcium (Atorvastatin Calcium) 10 Mg Tab, 10 MG PO DAILY Famotidine (Pepcid) 20 Mg Tab, 20 MG PO BID Lisinopril (Lisinopril) 10 Mg Tab, 10 MG PO DAILY Magnesium Oxide (Magnesium Oxide 400) 400 Mg Tab, 400 MG PO BID Nitrofurantoin Macrocrystals (Nitrofurantoin Macrocrystals) 100 Mg Cap, 100 MG PO Q12H HAS TWO CAPSULES LEFT Potassium Citrate (Potassium Citrate 10MEQ (Urocit-K)) 1,080 Mg Tab, 10 MEQ BID Simethicone (Simethicone) 40 Mg Halftab, 80 MG PO QID for gas Vitamin D (Vitamin D) 1,000 Unit Cap, 1,000 UNIT PO DAILY Scheduled PRN Ondansetron (Ondansetron Odt) 4 Mg Tab, 4 MG PO Q4H PRN for NAUSEA Allergies Coded Allergies: Cefuroxime (Verified Allergy, Severe, THROAT SWELLED DIFF BREATHING, 09/27/17) Codeine (Verified Allergy, Severe, THROAT SWELLED, 09/27/17) Lurasidone (Verified Allergy, Unknown, 09/27/17) SASKIA SHAW MD Aug 29, 2018 03:41
[2018-08-29] MEDS ORDERED: GLUCAGON FOR INJ 1 MG VIAL (J1610) SC PRN (07:15)
[2018-08-29] MEDS ORDERED: DEXTROSE 50% 50 ML SYRINGE IV PRN (07:15)
[2018-08-29] MEDS ORDERED: GLUCOSE 4 GM CHEW TABLET PO PRN (07:15)
[2018-08-29] MEDS ORDERED: HumaLOG INSULIN (NovoLOG) PER UNIT SC SCH (07:30)
[2018-08-29] MEDS ORDERED: ISOVUE-370 76% 100ML VIAL (Q9967) As Ordered ONE (07:39)
--- NOTE | 2018-08-29 07:52 | REP ---
Clinical: Fever . Comparison: 02/06/2008 . Findings: The mediastinum and cardiac silhouette are stable and within normal limits for portable technique. The lung peña are clear without acute consolidation, effusion, or pneumothorax. Skeletal structures are intact. Impression: No acute cardiopulmonary process appreciated. Electronically Signed by Yoni Marlow MD 08/29/2018 07:43 A
[2018-08-29] MEDS ORDERED: MAG SULF 1GM/100ML (MAG RUN) 1 GM in APPROPRIATE DILUENT 1 EA IV ONE ×2 (08:00→09:00)
[2018-08-29 08:11] LABS: FREE T4 1.6 NG/DL (0.76-1.46)
--- NOTE | 2018-08-29 08:14 | REP ---
Head CT without contrast: History: Dizziness and vertigo Comparison study: June 04, 2016. CT findings: Bone window settings demonstrate an intact bony calvarium. There is no evidence of skull fracture or incidental bony calvarial lesion. The visualized paranasal sinuses appear clear. No intraorbital abnormality is seen. On soft tissue window setting images; the lateral, third, and fourth ventricles are normal in size and position. Wong-white differentiation pattern is normal above and below the tentorium. There are is no evidence of intracranial hemorrhage. No mass, edema, infarction, or midline shift is seen. No extra-axial fluid collection is appreciated. Impression: Negative noncontrast head CT. Electronically Signed by Oscar Rasmussen MD 08/29/2018 08:05 A
[2018-08-29] MEDS: KCL 20MEQ in NS 1000ML 1,000 ML IV SCH ×2 (08:38→18:38)
[2018-08-29] MEDS: MAGNESIUM OXIDE 400 MG TAB (MAG-OX) PO SCH ×2 (08:39→20:45)
[2018-08-29] MEDS: VITAMIN D 1,000 INTERNATIONAL UNITS TABLET PO SCH (08:39)
[2018-08-29] MEDS: ALLOPURINOL 300 MG TAB PO SCH (08:39)
[2018-08-29] MEDS: VANCOMYCIN HCL 1,000 MG, VIAL MATE ADAPTER 1 EACH in D5W 250 ML IV SCH ×2 (08:39→20:45)
[2018-08-29] MEDS: ATORVASTATIN 10 MG TAB PO SCH (08:39)
[2018-08-29] MEDS: PANTOPRAZOLE 40MG INJ (PROTONIX) (C9113) IV SCH (08:40)
--- NOTE | 2018-08-29 08:43 | REP ---
CT abdomen and pelvis with IV but without oral contrast: History: Abdomen pain. Comparison study August 27, 2018. CT contrast dose: 100 ml of intravenous Isovue [address] findings: Digital preliminary heading maker radiograph is unremarkable. The lung bases are clear. There is diffuse fatty infiltration of the liver again noted. The patient is status post gastric bypass procedure. No adrenal or pancreatic abnormality is seen. The gallbladder is small and contracted but otherwise intact. The kidneys enhance symmetrically and are morphologically intact. Small and large intestinal bowel loops are unremarkable in the abdomen and pelvis. There is diastases of the rectus abdominis musculature. The patient is status post hysterectomy. A Pond catheter is seen in the urinary bladder which is empty. There is mild left colonic diverticulosis without CT evidence of diverticulitis. There is no evidence of free fluid or free air. Impression: Pond catheter in place. Status post gastric bypass. Left colonic diverticulosis. Status post hysterectomy. Diastases of the rectus abdominis musculature. Fatty infiltration of the liver. No acute abdominal or pelvic abnormality. Electronically Signed by Oscar Rasmussen MD 08/29/2018 10:55 A
[2018-08-29] MEDS: SIMETHICONE 80 MG CHEW TAB PO SCH ×4 (08:47→20:46)
[2018-08-29] MEDS ORDERED: FAMOTIDINE 20 MG TAB PO SCH (09:00)
[2018-08-29] MEDS: MEROPENEM INJ 1 GM in APPROPRIATE DILUENT 1 EA IV SCH ×2 (09:56→18:37)
[2018-08-29 10:19] LABS: HEPATITIS A ANTIBODY IGM NEGATIVE (NEGATIVE); HEPATITIS B CORE ANTIBODY IGM NEGATIVE (NEGATIVE); HEPATITIS B SURFACE ANTIBODY NEGATIVE (POSITIVE); HEPATITIS B SURFACE ANTIGEN NEGATIVE (NEGATIVE); HEPATITIS C VIRUS ABY INDEX 0.1 INDEX (<0.8)
[2018-08-29 11:33] LABS: HEMOGLOBIN A1c 6.9 %
[2018-08-29] MEDS: ONDANSETRON 4MG/2ML VIAL (J2405) IV PRN ×2 (12:53→21:53)
--- NOTE | 2018-08-29 13:46 | ECGEPIP ---
Stationary ECG Study [facility] - ED Test Date: 2018-08-29 Pat Name: CHANCE ROE Department: Room: [place] [address] Gender: F [employer]: : 1955 Requested By: GISELLE FOUNTAIN Order Number: [id number] Reading MD: Viviane Majano Measurements Intervals [place] Rate: 106 P: 37 VT: 148 QRS: 59 QRSD: 146 T: 30 QT: 345 QTc: 458 Interpretive Statements SINUS TACHYCARDIA RIGHT BUNDLE BRANCH BLOCK SIMILAR 08/27/18 Electronically Signed On 08-29-2018 13:45:54 EST by Viviane Majano
--- NOTE | 2018-08-29 14:49 | PHACANCOPD ---
PHARMACY VANCOMYCIN DOSING Pt Demographics Demographics Patient Age:63 , Weight:111.360 , Gender: female Adjusted Body Weight Date: 08/29/18, Adjusted Body Weight: Kg Events Past 24 Hours Events Past 24 Hours: YES: Fever, Elevation in WBC Vancomycin Vancomycin indication: SEPTIC UNKNOWN SOURCE Vancomycin Target Ranges: 10-20 mcg/ml Vancomycin Load Y/N: Yes Load Dose Date Time Vancomycin Load Dose: 2g total (1g @0130, then 1g @0800 on 08/29/18) Vancomycin Dose Date: 08/29/18. Current Vancomycin Dose: [1g IV Q12H] Intermittent Dosing?: No Labs Labs Item Value Date Time White Blood Count 14.0 10^3/uL H 08/29/18 0506 White Blood Count 3.8 10^3/uL L 08/28/18 2315 Lactic Acid Level 3.3 MMOL/L *H 08/29/18 0000 Lactic Acid Followup at 4 Hours 2.7 MMOL/L *H 08/29/18 0506 Micro Microbiology 08/29/18 Blood Culture, Received Pending 08/29/18 Urine Culture, Received Pending Creatinine Clearance Date:08/29/18. Est Creatinine Clearance: [~50ml/min based on CG AdjBW formula]. Pending Labs Vancomycin trough level scheduled 08/30/18 @1900, prior to the 5th dose Assessment and Plan Maintaining Current Dose?: Yes Reason for dose change: No Dose Change Pharmacist Note Pharmacist Note Date: 08/29/18. Pharmacist note: Day #1 empiric vancomycin therapy initiated with a 2g loading dose (1g given at 0130, 1g given at 0800) followed by a maintenance regimen of 1g IV Q12H (pts est crcl based on adjBW given CMI=44.9 is ~50ml/min) for the treatment of sepsis, source unknown - aiming for a goal trough level of 10-20mcg/ml. The patient was recently being treated for a UTI with a course of macrobid that she did not finish. A clean catch urine culture from 08/24/18 resulted no growth. Urinalysis this admit is unremarkable, however, a repeat catheterized urine culture is pending. WBC, temp, and LA are all elevated on admit. No PMH of MRSA or vanco use here at [facility]. Blood cultures are also pending. CXR today revealed "No acute cardiopulmonary process appreciated." A vancomycin trough level has been scheduled prior to the 5th dose 08/30/18 @1900. We will continue to monitor and make dose adjustments if needed. JAYNE LOPEZ PHARMACY Aug 29, 2018 14:49
[2018-08-29] MEDS: KCL 20MEQ IN D5/NS 1000ML 1,000 ML IV SCH (19:53)
--- NOTE | 2018-08-29 20:24 | ECHO ---
DATE OF PROCEDURE: 08/29/2018 REFERRING PHYSICIAN: Dr. Rosario Kelley INDICATION: Abnormal ECG. Height 158 cm, weight 111 kg. DIMENSIONS: IVS: 1.2 LV: 5.0 LVPW: 1.2 LA: 3.7 Aorta: 2.7 IVC: 1.4 Mitral E wave velocity: 103 A-wave: 114 E prime septal: 8.0 E prime lateral: 11.3 FINDINGS: The study is of fair technical quality corresponding to patient's body habitus. Left ventricle is of normal size and has hyperdynamic contractility. I estimate left ventricular ejection fraction (LVEF) around 65-70% based on fair visualization. I do not appreciate any distinct wall motion abnormalities. Right ventricle was poorly visualized. It appears probably mildly enlarged, but it really was not well seen. Left atrium is at least mildly enlarged. Right atrium was poorly seen. Aortic valve appears minimally sclerotic but mobility of cusps is preserved. Mitral valve exhibits minimal degenerative abnormalities. I cannot completely rule out presence of vegetation of mitral valve but it appears rather unlikely. Tricuspid valve appears normal. Pulmonic valve was not seen. No pericardial effusion is noted. Inferior vena cava is normal size and appropriately collapses with respiration indicative of likely normal central venous pressure. Aortic root is normal. Aortic arch and abdominal aorta were not well seen. Doppler interrogation of aortic valve reveals no insufficiency and trivial stenosis with mean gradient 8 mmHg. There is no significant mitral valvular disease. There is trace tricuspid insufficiency. Calculated pulmonary artery pressure was within normal limits. Pulmonic valve was not well seen. Mitral inflow pattern and tissue Doppler imaging of mitral annulus revealed grade 1 diastolic dysfunction. CONCLUSIONS: 1. The study is of fair technical quality. 2. Normal left ventricular (LV) size with mild left ventricular hypertrophy and hyperdynamic LV systolic function. Grade 1 diastolic dysfunction. Cannot completely rule out subtle wall motion abnormalities but it appears unlikely. 3. No significant valvular disease. 4. Normal central venous pressure and probably normal pulmonary artery pressure. 5. Right ventricle appears mildly dilated based on very limited views. COMMENT: Subacute bacterial endocarditis (SBE) prophylaxis is not recommended. Overall study most consistent with hypertensive heart disease. MTDD
[2018-08-29] MEDS: ACETAMINOPHEN TAB 650MG DOSE (2X325MG) PO PRN (20:45)
[2018-08-30] VITALS (7 sets, daily range): BP systolic 93–140; BP diastolic 46–71
[2018-08-30] MEDS: MEROPENEM INJ 1 GM in APPROPRIATE DILUENT 1 EA IV SCH ×3 (00:50→17:05)
[2018-08-30] MEDS: HEPARIN SOD (PORCINE) 5000 UNITS/ML VIAL SC SCH ×3 (05:22→22:18)
[2018-08-30 05:54] LABS: BASO % 0.3 % (0.0-1.0); EOS # 0.5 10^3/uL (0.0-0.50); EOS % 5.5 % (0.0-3.0); HEMATOCRIT 36.8 % (36.0-47.0); HEMOGLOBIN 11.6 g/dl (12.0-15.5); LYMPH # 1.4 10^3/uL (1.5-4.5); LYMPH % 15.8 % (24.0-44.0); MEAN CORPUSCULAR HEMOGLOBIN 29.7 pg (27.0-33.0); MEAN CORPUSCULAR HGB CONC 31.5 g/dl (32.0-36.5); MEAN CORPUSCULAR VOLUME 94.4 fl (80.0-96.0); MONO # 0.5 10^3/uL (0.0-0.8); MONO % 5.8 % (0.0-5.0); NEUTROPHILS # 6.3 10^3/uL (1.8-7.7); NEUTROPHILS % 71.9 % (36.0-66.0); PLATELET COUNT, AUTOMATED 214 10^3/uL (150-450); WHITE BLOOD COUNT 8.8 10^3/uL (4.0-10.0)
[2018-08-30 06:03] LABS: INFLUENZA A AMPLIFICATION NEGATIVE (NEGATIVE); INFLUENZA B AMPLIFICATION NEGATIVE (NEGATIVE)
[2018-08-30 06:36] LABS: ALT/SGPT 162 U/L (12-78); BILIRUBIN,DIRECT 0.4 MG/DL (0.0-0.2); BILIRUBIN,TOTAL 0.7 MG/DL (0.2-1.0); BLOOD UREA NITROGEN 13 MG/DL (7-18); CALCIUM LEVEL 7.4 MG/DL (8.8-10.2); CARBON DIOXIDE LEVEL 23 MEQ/L (21-32); CHLORIDE LEVEL 113 MEQ/L (98-107); CREATININE FOR GFR 0.82 MG/DL (0.55-1.30); GLOMERULAR FILTRATION RATE > 60.0 (>45); GLUCOSE, FASTING 86 MG/DL (70-100); MAGNESIUM LEVEL 2.2 MG/DL (1.8-2.4); POTASSIUM SERUM 3.9 MEQ/L (3.5-5.1); SODIUM LEVEL 142 MEQ/L (136-145); TOTAL PROTEIN 4.7 GM/DL (6.4-8.2)
[2018-08-30] MEDS: HumaLOG INSULIN (NovoLOG) PER UNIT SC SCH ×4 (07:30→21:00)
[2018-08-30] MEDS: PANTOPRAZOLE 40MG INJ (PROTONIX) (C9113) IV SCH (08:20)
[2018-08-30] MEDS: ATORVASTATIN 10 MG TAB PO SCH (08:20)
[2018-08-30] MEDS: VITAMIN D 1,000 INTERNATIONAL UNITS TABLET PO SCH (08:21)
[2018-08-30] MEDS: MAGNESIUM OXIDE 400 MG TAB (MAG-OX) PO SCH ×2 (08:21→22:17)
[2018-08-30] MEDS: ALLOPURINOL 300 MG TAB PO SCH (08:21)
[2018-08-30] MEDS: SIMETHICONE 80 MG CHEW TAB PO SCH ×4 (08:21→22:17)
[2018-08-30] MEDS: VANCOMYCIN HCL 1,000 MG, VIAL MATE ADAPTER 1 EACH in D5W 250 ML IV SCH ×2 (08:22→20:29)
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
[2018-08-30] MEDS ORDERED: ISOVUE-370 76% 100ML VIAL (Q9967) As Ordered ONE (09:06)
--- NOTE | 2018-08-30 09:43 | REP ---
CT pulmonary angiogram: With IV contrast. History: Shortness of breath. Low grade fever. Status post gastric bypass. Comparison studies: Comparison CT chest with IV contrast August 27, 2018 Contrast dose: 75 mL of Isovue [address] technique: Helical scanning is acquired and overlapping 1.5 mm and contiguous 3 mm axial images are reformatted. In addition, maximum intensity projection and multiplanar re-formation images are generated in sagittal and coronal imaging projections. CT pulmonary angiographic findings: There is good opacification in the pulmonary arterial tree. There is no CT evidence of pulmonary embolism. There is a small amount of pleural and pericardial fluid which is a new finding. The heart is felt to be mildly enlarged. There is diffuse fatty infiltration of the liver. The patient is status post gastric bypass procedure. No abnormal fluid collection is seen in the upper abdomen. The upper abdomen is otherwise unremarkable. No hilar or mediastinal mass or adenopathy is observed. The lung peña show no evidence of infiltrate. Impression: Small bilateral pleural effusions and small amount of pericardial fluid. No CT evidence of pulmonary embolus. No aortic abnormality noted. Fatty infiltration of the liver. Post gastric bypass changes in the upper abdomen. Electronically Signed by Oscar Rasmussen MD 08/30/2018 01:27 P
[2018-08-30] MEDS: KCL 20MEQ IN D5/NS 1000ML 1,000 ML IV SCH (10:32)
[2018-08-30] MEDS ORDERED: LIDOCAINE 1% MDV 20ML VIAL As Ordered ONE (11:51)
[2018-08-30] MEDS ORDERED: SODIUM CHLORIDE 0.9% INJ 10 ML SYR IV PRN (13:15)
[2018-08-30] MEDS: SODIUM CHLORIDE 0.9% INJ 10 ML SYR IV SCH (17:19)
--- NOTE | 2018-08-30 17:19 | REP ---
Procedure: PICC line insertion with Zo The procedure was performed under the direct supervision of Dr. Rasmussen. The risks and benefits of the procedure were explained to the patient and informed consent was obtained. The right basilic vein was localized using ultrasound guidance. The skin was prepped and draped in a sterile fashion. 2% lidocaine was used as a local anesthetic. Using ultrasound guidance the basilic vein was cannulated and a 0.018 guidewire was inserted and advanced to the SVC using fluoroscopic guidance. The needle was removed and a 5.5 Dominican dilator and peel-away sheath was inserted over the guide wire. A 5.5 Dominican dual lumen catheter was cut to length of 41 cm. The dilator was removed and the catheter was inserted over the guide wire with the tip ending in the SVC. The peel-away sheath was removed and the catheter was flushed with heparinized saline as per Hospital protocol. The catheter was affixed to the skin and a sterile dressing was applied. The patient tolerated the procedure well and there were no immediate complications. 0.3 minutes of fluoro time was utilized for this procedure. Reviewed by CANDY Ohaar 08/30/2018 03:18 P Electronically Signed by Oscar Rasmussen MD 08/30/2018 05:10 P
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
[2018-08-31] MEDS: MEROPENEM INJ 1 GM in APPROPRIATE DILUENT 1 EA IV SCH ×3 (00:48→17:33)
[2018-08-31 02:00] VITALS: BP 144/68
[2018-08-31] MEDS: HEPARIN SOD (PORCINE) 5000 UNITS/ML VIAL SC SCH ×3 (05:49→21:22)
[2018-08-31] MEDS: SODIUM CHLORIDE 0.9% INJ 10 ML SYR IV SCH ×2 (05:49→17:34)
[2018-08-31 06:00] VITALS: BP 125/58
[2018-08-31 06:13] LABS: BASO % 0.6 % (0.0-1.0); EOS # 0.5 10^3/uL (0.0-0.50); EOS % 8.8 % (0.0-3.0); HEMATOCRIT 33.4 % (36.0-47.0); HEMOGLOBIN 10.6 g/dl (12.0-15.5); LYMPH % 32.5 % (24.0-44.0); MEAN CORPUSCULAR HEMOGLOBIN 29.6 pg (27.0-33.0); MEAN CORPUSCULAR HGB CONC 31.7 g/dl (32.0-36.5); MEAN CORPUSCULAR VOLUME 93.3 fl (80.0-96.0); MONO # 0.5 10^3/uL (0.0-0.8); MONO % 7.6 % (0.0-5.0); NEUTROPHILS % 49.4 % (36.0-66.0); PLATELET COUNT, AUTOMATED 230 10^3/uL (150-450); RED BLOOD COUNT 3.58 10^6/uL (4.00-5.40); WHITE BLOOD COUNT 6.2 10^3/uL (4.0-10.0)
[2018-08-31 06:39] LABS: BLOOD UREA NITROGEN 12 MG/DL (7-18); CALCIUM LEVEL 7.7 MG/DL (8.8-10.2); CARBON DIOXIDE LEVEL 27 MEQ/L (21-32); CHLORIDE LEVEL 111 MEQ/L (98-107); CREATININE FOR GFR 0.64 MG/DL (0.55-1.30); GLOMERULAR FILTRATION RATE > 60.0 (>45); GLUCOSE, FASTING 76 MG/DL (70-100); MAGNESIUM LEVEL 1.9 MG/DL (1.8-2.4); SODIUM LEVEL 144 MEQ/L (136-145)
[2018-08-31] MEDS: HumaLOG INSULIN (NovoLOG) PER UNIT SC SCH ×4 (07:30→21:00)
[2018-08-31] MEDS: ATORVASTATIN 10 MG TAB PO SCH (08:46)
[2018-08-31] MEDS: SIMETHICONE 80 MG CHEW TAB PO SCH ×4 (08:46→21:22)
[2018-08-31] MEDS: VANCOMYCIN HCL 1,000 MG, VIAL MATE ADAPTER 1 EACH in D5W 250 ML IV SCH (08:46)
[2018-08-31] MEDS: ACETAMINOPHEN TAB 650MG DOSE (2X325MG) PO PRN (08:47)
[2018-08-31] MEDS: ALLOPURINOL 300 MG TAB PO SCH (08:48)
[2018-08-31] MEDS: MAGNESIUM OXIDE 400 MG TAB (MAG-OX) PO SCH ×2 (08:48→21:22)
[2018-08-31] MEDS: VITAMIN D 1,000 INTERNATIONAL UNITS TABLET PO SCH (08:48)
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
[2018-08-31 14:00] VITALS: BP 118/68
--- NOTE | 2018-08-31 14:34 | PHACANCOPD ---
PHARMACY VANCOMYCIN DOSING Pt Demographics Demographics Patient Age:63 , Weight:135.300 , Gender: female Adjusted Body Weight Date: 08/29/18, Adjusted Body Weight: Kg Vancomycin Vancomycin indication: SEPTIC UNKNOWN SOURCE Vancomycin Target Ranges: 10-20 mcg/ml Vancomycin Load Y/N: Yes Load Dose Date Time Vancomycin Load Dose: 2g total (1g @0130, then 1g @0800 on 08/29/18) Vancomycin Dose Date: 08/29/18. Current Vancomycin Dose: [1g IV Q12H] Intermittent Dosing?: No Labs Micro Microbiology 08/29/18 Blood Culture - Preliminary, Resulted No Growth after 48 hours. All Specime... 08/30/18 MRSA Screen, Received Pending 08/30/18 Respiratory Virus Panel (PCR) ([facility]) - Final, Complete 08/29/18 Urine Culture - Final, Complete Creatinine Clearance Date:08/29/18. Est Creatinine Clearance: [~50ml/min based on CG AdjBW formula]. Pending Labs Vancomycin trough level scheduled 08/30/18 @1900, prior to the 5th dose Assessment and Plan Maintaining Current Dose?: Yes Reason for dose change: No Dose Change Pharmacist Note Pharmacist Note 08/31/18: Day # 3 vancomycin tx. Trough level yesterday resulted at 13.5mcg/ml. Scr has improved at 0.64 today from 1.24 at start of therapy. Given this improvement, we will obtain a follow-up trough level tomorrow, 09/01/18, at 0700 to ensure that the patient is remaining therapeutic. We will continue to monitor and make dose adjustments if needed. Date: 08/29/18. Pharmacist note: Day #1 empiric vancomycin therapy initiated with a 2g loading dose (1g given at 0130, 1g given at 0800) followed by a maintenance regimen of 1g IV Q12H (pts est crcl based on adjBW given CMI=44.9 is ~50ml/min) for the treatment of sepsis, source unknown - aiming for a goal trough level of 10-20mcg/ml. The patient was recently being treated for a UTI with a course of macrobid that she did not finish. A clean catch urine culture from 08/24/18 resulted no growth. Urinalysis this admit is unremarkable, however, a repeat catheterized urine culture is pending. WBC, temp, and LA are all elevated on adm it. No PMH of MRSA or vanco use here at [facility]. Blood cultures are also pending. CXR today revealed "No acute cardiopulmonary process appreciated." A vancomycin trough level has been scheduled prior to the 5th dose 08/30/18 @1900. We will continue to monitor and make dose adjustments if needed. JAYNE LOPEZ PHARMACY Aug 31, 2018 14:34
[2018-08-31 22:00] VITALS: BP 136/72
[2018-09-01] MEDS: MEROPENEM INJ 1 GM in APPROPRIATE DILUENT 1 EA IV SCH (01:05)
[2018-09-01] MEDS: SODIUM CHLORIDE 0.9% INJ 10 ML SYR IV SCH ×2 (05:19→17:49)
[2018-09-01] MEDS: HEPARIN SOD (PORCINE) 5000 UNITS/ML VIAL SC SCH ×3 (05:19→20:50)
[2018-09-01 05:47] LABS: BASO # 0.1 10^3/uL (0.0-0.2); EOS # 0.4 10^3/uL (0.0-0.50); EOS % 6.8 % (0.0-3.0); HEMOGLOBIN 10.7 g/dl (12.0-15.5); LYMPH # 2.5 10^3/uL (1.5-4.5); LYMPH % 41.2 % (24.0-44.0); MEAN CORPUSCULAR HEMOGLOBIN 29.6 pg (27.0-33.0); MEAN CORPUSCULAR HGB CONC 32.4 g/dl (32.0-36.5); MEAN CORPUSCULAR VOLUME 91.2 fl (80.0-96.0); MONO # 0.5 10^3/uL (0.0-0.8); MONO % 7.6 % (0.0-5.0); NEUTROPHILS # 2.6 10^3/uL (1.8-7.7); NEUTROPHILS % 42.2 % (36.0-66.0); PLATELET COUNT, AUTOMATED 241 10^3/uL (150-450); RED BLOOD COUNT 3.62 10^6/uL (4.00-5.40); WHITE BLOOD COUNT 6.1 10^3/uL (4.0-10.0)
[2018-09-01 06:00] VITALS: BP 136/65
[2018-09-01 06:13] LABS: BLOOD UREA NITROGEN 10 MG/DL (7-18); CALCIUM LEVEL 7.9 MG/DL (8.8-10.2); CARBON DIOXIDE LEVEL 31 MEQ/L (21-32); CHLORIDE LEVEL 108 MEQ/L (98-107); CREATININE FOR GFR 0.51 MG/DL (0.55-1.30); GLOMERULAR FILTRATION RATE > 60.0 (>45); GLUCOSE, FASTING 80 MG/DL (70-100); MAGNESIUM LEVEL 1.8 MG/DL (1.8-2.4); POTASSIUM SERUM 3.9 MEQ/L (3.5-5.1); SODIUM LEVEL 144 MEQ/L (136-145)
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
[2018-09-01] MEDS: HumaLOG INSULIN (NovoLOG) PER UNIT SC SCH ×4 (07:59→21:00)
[2018-09-01] MEDS: ATORVASTATIN 10 MG TAB PO SCH (09:25)
[2018-09-01] MEDS: MAGNESIUM OXIDE 400 MG TAB (MAG-OX) PO SCH ×2 (09:25→20:51)
[2018-09-01] MEDS: VITAMIN D 1,000 INTERNATIONAL UNITS TABLET PO SCH (09:25)
[2018-09-01] MEDS: ALLOPURINOL 300 MG TAB PO SCH (09:26)
[2018-09-01] MEDS: SIMETHICONE 80 MG CHEW TAB PO SCH ×4 (09:26→20:51)
[2018-09-01] MEDS ORDERED: MOM 30ML SUSPENSION UDC PO PRN (11:30)
[2018-09-01] MEDS: SENOKOT S TAB PO SCH ×2 (12:49→20:51)
[2018-09-01 14:00] VITALS: BP 135/62
[2018-09-01 22:00] VITALS: BP 145/75
[2018-09-02 06:00] VITALS: BP 138/64
[2018-09-02] MEDS: SODIUM CHLORIDE 0.9% INJ 10 ML SYR IV SCH ×2 (06:27→16:14)
[2018-09-02] MEDS: HEPARIN SOD (PORCINE) 5000 UNITS/ML VIAL SC SCH ×3 (06:27→21:46)
[2018-09-02 06:58] LABS: BASO # 0.1 10^3/uL (0.0-0.2); BASO % 1.1 % (0.0-1.0); EOS # 0.4 10^3/uL (0.0-0.50); EOS % 4.8 % (0.0-3.0); HEMATOCRIT 35.7 % (36.0-47.0); HEMOGLOBIN 11.5 g/dl (12.0-15.5); LYMPH # 2.7 10^3/uL (1.5-4.5); LYMPH % 36.2 % (24.0-44.0); MEAN CORPUSCULAR HEMOGLOBIN 29.9 pg (27.0-33.0); MEAN CORPUSCULAR HGB CONC 32.2 g/dl (32.0-36.5); MONO # 0.6 10^3/uL (0.0-0.8); MONO % 8.4 % (0.0-5.0); NEUTROPHILS # 3.6 10^3/uL (1.8-7.7); NEUTROPHILS % 47.4 % (36.0-66.0); PLATELET COUNT, AUTOMATED 258 10^3/uL (150-450); RED BLOOD COUNT 3.84 10^6/uL (4.00-5.40); WHITE BLOOD COUNT 7.5 10^3/uL (4.0-10.0)
[2018-09-02 07:16] LABS: HEMOGLOBIN A1c 6.7 %
[2018-09-02 07:24] LABS: ALBUMIN 2.4 GM/DL (3.2-5.2); ALT/SGPT 72 U/L (12-78); BILIRUBIN,TOTAL 0.5 MG/DL (0.2-1.0); BLOOD UREA NITROGEN 8 MG/DL (7-18); CALCIUM LEVEL 8.2 MG/DL (8.8-10.2); CARBON DIOXIDE LEVEL 30 MEQ/L (21-32); CHLORIDE LEVEL 105 MEQ/L (98-107); CREATININE FOR GFR 0.55 MG/DL (0.55-1.30); FERRITIN 338 NG/ML (8-252); GLOMERULAR FILTRATION RATE > 60.0 (>45); GLUCOSE, FASTING 96 MG/DL (70-100); IRON (FE) 75 UG/DL (50-170); MAGNESIUM LEVEL 1.7 MG/DL (1.8-2.4); PERCENT SATURATION 39.5 % (13.2-45.0); PHOSPHORUS LEVEL 2.9 MG/DL (2.5-4.9); POTASSIUM SERUM 3.6 MEQ/L (3.5-5.1); SODIUM LEVEL 142 MEQ/L (136-145); TOTAL IRON BINDING CAPACITY 190 UG/DL (250-450)
[2018-09-02] MEDS: HumaLOG INSULIN (NovoLOG) PER UNIT SC SCH ×4 (07:30→21:00)
[2018-09-02 07:40] LABS: ERYTHROCYTE SEDIMENTATION RATE 28 mm/hr (0-30)
[2018-09-02] MEDS: ATORVASTATIN 10 MG TAB PO SCH (09:56)
[2018-09-02] MEDS: SENOKOT S TAB PO SCH ×2 (09:57→21:47)
[2018-09-02] MEDS: SIMETHICONE 80 MG CHEW TAB PO SCH ×4 (09:57→21:47)
[2018-09-02] MEDS: VITAMIN D 1,000 INTERNATIONAL UNITS TABLET PO SCH (09:58)
[2018-09-02] MEDS: ALLOPURINOL 300 MG TAB PO SCH (09:58)
[2018-09-02] MEDS: MAGNESIUM OXIDE 400 MG TAB (MAG-OX) PO SCH ×2 (09:58→21:46)
[2018-09-02 10:00] LABS: HEMATOCRIT 35.7 % (36.0-47.0)
[2018-09-02 10:02] LABS: TOTAL 25(OH) VITAMIN D 50.9 NG/ML (30.0-100.0); VITAMIN B12 LEVEL 806 PG/ML (247-911)
[2018-09-02] MEDS ORDERED: POTASSIUM CHLORIDE 10 MEQ SR TABLET PO ONE (13:15)
[2018-09-02] MEDS ORDERED: MAG SULF 1GM/100ML (MAG RUN) 1 GM in APPROPRIATE DILUENT 1 EA IV ONE (13:15)
[2018-09-02 14:00] VITALS: BP 126/66
[2018-09-02] MEDS ORDERED: POTASSIUM CHLORIDE 10% LIQ 20 MEQ/15 ML UDC PO ONE (14:00)
[2018-09-02 22:00] VITALS: BP 129/58
--- NOTE | 2018-09-03 00:30 | IPN ---
DATE: 09/02/2018 She feels better, less anxious, less depressed, more confident. Says feels healthier. She also indicates she has spoken with her regarding their difficulties as well, and that he has been more receptive to seeking help together as well, and she feels more confident with that. She says couples counseling help is also available through the [facility]. She has spoken with her therapist, Lucreo, who she sees on a weekly basis. She plans continuing to do so. She denies any suicidal thoughts or intent at present. Says has had more time to think about her state, and feels more confident, as her physical condition has improved. She is also confident about maintaining her own safety. She is neat, cooperative, she is coherent, there is no agitation, no psychomotor retardation. Affect is broader. She denies any suicidal thoughts or intent at present and no evidence of any homicidal ideas or intent, nor of any psychosis. Cognition is grossly intact. Judgment and insight are improved overall. ASSESSMENT: Post-traumatic stress disorder. Other specified depressive disorder. She is clinically improved, more confident, appears less depressed and less anxious. She is being visited by her daughter, and says gets along well with her. She is also more confident about her marriage. RECOMMENDATIONS: [facility], has a therapist who she sees regularly. Should symptoms related to past traumas continue persisting, the patient ought to see a psychiatrist for an assessment, which can be arranged by the [facility]. This was discussed with her, and she says she will consider it. She does not at this point require inpatient psychiatric hospitalization. The sitter may be discontinued from my standpoint. I will sign off for this patient for now, and she can be discharged home. If there are any other concerns, please call.
[2018-09-03 06:00] VITALS: BP 140/63
[2018-09-03] MEDS: HEPARIN SOD (PORCINE) 5000 UNITS/ML VIAL SC SCH ×3 (06:07→21:10)
[2018-09-03] MEDS: SODIUM CHLORIDE 0.9% INJ 10 ML SYR IV SCH ×2 (06:08→18:25)
[2018-09-03 06:49] LABS: HEMATOCRIT 35.7 % (36.0-47.0); HEMOGLOBIN 11.5 g/dl (12.0-15.5); MEAN CORPUSCULAR HEMOGLOBIN 29.4 pg (27.0-33.0); MEAN CORPUSCULAR HGB CONC 32.2 g/dl (32.0-36.5); MEAN CORPUSCULAR VOLUME 91.3 fl (80.0-96.0); PLATELET COUNT, AUTOMATED 272 10^3/uL (150-450); RED BLOOD COUNT 3.91 10^6/uL (4.00-5.40); WHITE BLOOD COUNT 10.2 10^3/uL (4.0-10.0)
[2018-09-03 07:02] LABS: BLOOD UREA NITROGEN 8 MG/DL (7-18); CALCIUM LEVEL 8.1 MG/DL (8.8-10.2); CARBON DIOXIDE LEVEL 29 MEQ/L (21-32); CHLORIDE LEVEL 105 MEQ/L (98-107); CREATININE FOR GFR 0.53 MG/DL (0.55-1.30); GLOMERULAR FILTRATION RATE > 60.0 (>45); GLUCOSE, FASTING 89 MG/DL (70-100); POTASSIUM SERUM 3.9 MEQ/L (3.5-5.1); SODIUM LEVEL 144 MEQ/L (136-145)
[2018-09-03] MEDS: ATORVASTATIN 10 MG TAB PO SCH (08:40)
[2018-09-03] MEDS: SENOKOT S TAB PO SCH ×2 (08:40→21:09)
[2018-09-03] MEDS: ALLOPURINOL 300 MG TAB PO SCH (08:40)
[2018-09-03] MEDS: SIMETHICONE 80 MG CHEW TAB PO SCH ×4 (08:40→21:10)
[2018-09-03] MEDS: VITAMIN D 1,000 INTERNATIONAL UNITS TABLET PO SCH (08:40)
[2018-09-03] MEDS: HumaLOG INSULIN (NovoLOG) PER UNIT SC SCH ×4 (08:41→21:39)
[2018-09-03] MEDS: MAGNESIUM OXIDE 400 MG TAB (MAG-OX) PO SCH ×2 (08:41→21:10)
[2018-09-03 09:12] LABS: C REACTIVE PROTEIN QUANTITATIV 2.01 MG/DL (0.00-0.30)
[2018-09-03 09:25] LABS: ERYTHROCYTE SEDIMENTATION RATE 22 mm/hr (0-30)
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
[2018-09-03 14:00] VITALS: BP 156/63
[2018-09-03 22:00] VITALS: BP 124/65
[2018-09-04] MEDS: SODIUM CHLORIDE 0.9% INJ 10 ML SYR IV SCH ×2 (05:55→17:47)
[2018-09-04] MEDS: HEPARIN SOD (PORCINE) 5000 UNITS/ML VIAL SC SCH ×3 (05:55→21:30)
[2018-09-04 06:00] VITALS: BP 129/60
[2018-09-04 06:29] LABS: HEMATOCRIT 33.3 % (36.0-47.0); HEMOGLOBIN 10.7 g/dl (12.0-15.5); MEAN CORPUSCULAR HEMOGLOBIN 29.6 pg (27.0-33.0); MEAN CORPUSCULAR HGB CONC 32.1 g/dl (32.0-36.5); MEAN CORPUSCULAR VOLUME 92.2 fl (80.0-96.0); PLATELET COUNT, AUTOMATED 271 10^3/uL (150-450); RED BLOOD COUNT 3.61 10^6/uL (4.00-5.40); WHITE BLOOD COUNT 11.1 10^3/uL (4.0-10.0)
[2018-09-04 06:44] LABS: BLOOD UREA NITROGEN 10 MG/DL (7-18); C REACTIVE PROTEIN QUANTITATIV 1.76 MG/DL (0.00-0.30); CALCIUM LEVEL 7.8 MG/DL (8.8-10.2); CARBON DIOXIDE LEVEL 31 MEQ/L (21-32); CHLORIDE LEVEL 106 MEQ/L (98-107); CREATININE FOR GFR 0.51 MG/DL (0.55-1.30); GLOMERULAR FILTRATION RATE > 60.0 (>45); GLUCOSE, FASTING 89 MG/DL (70-100); POTASSIUM SERUM 3.8 MEQ/L (3.5-5.1); SODIUM LEVEL 143 MEQ/L (136-145)
[2018-09-04] MEDS: HumaLOG INSULIN (NovoLOG) PER UNIT SC SCH ×4 (07:30→21:00)
[2018-09-04 07:50] LABS: ERYTHROCYTE SEDIMENTATION RATE 26 mm/hr (0-30)
[2018-09-04] MEDS: VITAMIN D 1,000 INTERNATIONAL UNITS TABLET PO SCH (09:38)
[2018-09-04] MEDS: SENOKOT S TAB PO SCH ×2 (09:38→21:29)
[2018-09-04] MEDS: ALLOPURINOL 300 MG TAB PO SCH (09:38)
[2018-09-04] MEDS: SIMETHICONE 80 MG CHEW TAB PO SCH ×4 (09:38→21:29)
[2018-09-04] MEDS: MAGNESIUM OXIDE 400 MG TAB (MAG-OX) PO SCH ×2 (09:38→21:29)
[2018-09-04] MEDS: ATORVASTATIN 10 MG TAB PO SCH (09:38)
[2018-09-04 10:00] VITALS: BP 152/67
[2018-09-04 14:00] VITALS: BP 139/72
[2018-09-04 18:00] VITALS: BP 158/76
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
[2018-09-04 22:00] VITALS: BP 147/77
[2018-09-05 02:00] VITALS: BP 159/78
[2018-09-05 06:00] VITALS: BP 141/66
[2018-09-05] MEDS: SODIUM CHLORIDE 0.9% INJ 10 ML SYR IV SCH ×2 (06:00→18:50)
[2018-09-05] MEDS: HEPARIN SOD (PORCINE) 5000 UNITS/ML VIAL SC SCH ×3 (06:33→20:44)
[2018-09-05] MEDS: ACETAMINOPHEN TAB 650MG DOSE (2X325MG) PO PRN ×2 (06:33→18:52)
[2018-09-05 06:34] LABS: HEMATOCRIT 36.4 % (36.0-47.0); HEMOGLOBIN 11.4 g/dl (12.0-15.5); MEAN CORPUSCULAR HEMOGLOBIN 29.7 pg (27.0-33.0); MEAN CORPUSCULAR HGB CONC 31.3 g/dl (32.0-36.5); MEAN CORPUSCULAR VOLUME 94.8 fl (80.0-96.0); PLATELET COUNT, AUTOMATED 292 10^3/uL (150-450); RED BLOOD COUNT 3.84 10^6/uL (4.00-5.40); WHITE BLOOD COUNT 8.8 10^3/uL (4.0-10.0)
[2018-09-05 06:52] LABS: ERYTHROCYTE SEDIMENTATION RATE 36 mm/hr (0-30)
[2018-09-05 07:08] LABS: ALBUMIN 2.7 GM/DL (3.2-5.2); ALT/SGPT 45 U/L (12-78); BILIRUBIN,DIRECT 0.3 MG/DL (0.0-0.2); BILIRUBIN,TOTAL 0.6 MG/DL (0.2-1.0); BLOOD UREA NITROGEN 8 MG/DL (7-18); C REACTIVE PROTEIN QUANTITATIV 2.79 MG/DL (0.00-0.30); CALCIUM LEVEL 8.3 MG/DL (8.8-10.2); CARBON DIOXIDE LEVEL 31 MEQ/L (21-32); CHLORIDE LEVEL 107 MEQ/L (98-107); CREATININE FOR GFR 0.56 MG/DL (0.55-1.30); GLOMERULAR FILTRATION RATE > 60.0 (>45); GLUCOSE, FASTING 88 MG/DL (70-100); POTASSIUM SERUM 4.1 MEQ/L (3.5-5.1); SODIUM LEVEL 143 MEQ/L (136-145); TOTAL PROTEIN 5.4 GM/DL (6.4-8.2)
[2018-09-05] MEDS ORDERED: METOCLOPRAMIDE INJ 10MG/2ML VIAL (J2765) IV ONE (07:15)
[2018-09-05] MEDS ORDERED: KETOROLAC 30 MG/ML VIAL (J1885) IV ONE (07:15)
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
[2018-09-05] MEDS ORDERED: SODIUM CHLORIDE NASAL 0.65% SPRAY BTL (OCEAN) ONE (07:30)
[2018-09-05] MEDS: HumaLOG INSULIN (NovoLOG) PER UNIT SC SCH ×4 (07:30→20:53)
[2018-09-05] MEDS ORDERED: SODIUM CHLORIDE NASAL 0.65% SPRAY BTL (OCEAN) PRN (07:30)
[2018-09-05] MEDS: ALLOPURINOL 300 MG TAB PO SCH (08:29)
[2018-09-05] MEDS: MAGNESIUM OXIDE 400 MG TAB (MAG-OX) PO SCH ×2 (08:29→20:45)
[2018-09-05] MEDS: VITAMIN D 1,000 INTERNATIONAL UNITS TABLET PO SCH (08:29)
[2018-09-05] MEDS: SENOKOT S TAB PO SCH ×3 (08:29→20:56)
[2018-09-05] MEDS: SIMETHICONE 80 MG CHEW TAB PO SCH ×4 (08:29→20:44)
[2018-09-05] MEDS: ATORVASTATIN 10 MG TAB PO SCH (08:29)
[2018-09-05] MEDS: SODIUM CHLORIDE NASAL 0.65% SPRAY BTL (OCEAN) SCH ×3 (08:30→20:45)
[2018-09-05 10:00] VITALS: BP 130/60
[2018-09-05 14:00] VITALS: BP 132/60
[2018-09-05 18:00] VITALS: BP 142/62
[2018-09-05 22:00] VITALS: BP 146/63
[2018-09-06 02:00] VITALS: BP 171/82
[2018-09-06] MEDS: HEPARIN SOD (PORCINE) 5000 UNITS/ML VIAL SC SCH ×3 (05:03→21:43)
[2018-09-06] MEDS: SODIUM CHLORIDE 0.9% INJ 10 ML SYR IV SCH ×2 (05:04→17:25)
[2018-09-06 05:32] LABS: HEMATOCRIT 35.3 % (36.0-47.0); HEMOGLOBIN 11.2 g/dl (12.0-15.5); MEAN CORPUSCULAR HEMOGLOBIN 30.1 pg (27.0-33.0); MEAN CORPUSCULAR HGB CONC 31.7 g/dl (32.0-36.5); MEAN CORPUSCULAR VOLUME 94.9 fl (80.0-96.0); PLATELET COUNT, AUTOMATED 271 10^3/uL (150-450); RED BLOOD COUNT 3.72 10^6/uL (4.00-5.40); WHITE BLOOD COUNT 7.7 10^3/uL (4.0-10.0)
[2018-09-06 05:51] LABS: BLOOD UREA NITROGEN 9 MG/DL (7-18); CALCIUM LEVEL 8.1 MG/DL (8.8-10.2); CARBON DIOXIDE LEVEL 30 MEQ/L (21-32); CHLORIDE LEVEL 107 MEQ/L (98-107); GLOMERULAR FILTRATION RATE > 60.0 (>45); GLUCOSE, FASTING 83 MG/DL (70-100); POTASSIUM SERUM 4.1 MEQ/L (3.5-5.1); SODIUM LEVEL 145 MEQ/L (136-145)
[2018-09-06 06:00] VITALS: BP 149/67
[2018-09-06] MEDS: HumaLOG INSULIN (NovoLOG) PER UNIT SC SCH ×4 (07:44→21:00)
[2018-09-06] MEDS: ALLOPURINOL 300 MG TAB PO SCH (09:45)
[2018-09-06] MEDS: SENOKOT S TAB PO SCH ×3 (09:46→20:21)
[2018-09-06] MEDS: ATORVASTATIN 10 MG TAB PO SCH (09:46)
[2018-09-06] MEDS: SIMETHICONE 80 MG CHEW TAB PO SCH ×4 (09:46→20:21)
[2018-09-06] MEDS: SODIUM CHLORIDE NASAL 0.65% SPRAY BTL (OCEAN) SCH ×3 (09:46→20:21)
[2018-09-06] MEDS: MAGNESIUM OXIDE 400 MG TAB (MAG-OX) PO SCH ×2 (09:46→20:21)
[2018-09-06] MEDS: VITAMIN D 1,000 INTERNATIONAL UNITS TABLET PO SCH (09:47)
[2018-09-06 10:00] VITALS: BP 144/77
--- NOTE | 2018-09-06 12:57 | IPNPDOC ---
Text Note Date of Service The patient was seen on 09/06/18. NOTE SUBJECTIVE: Continues to complain of intermittent dizziness on getting up and continues to be weak and have disbalance during walking. She is using a walker now. She was on Wheelchair before. She is able to dress herself and wear her socks which she could not do before surgery. Continues to have normal to lowish blood sugars but her blood pressure is again rising. Continues to follow bariatric diet. No fever or chills. PHYSICAL EXAM: vitals: Pls see below Gen: NAD, morbidily obese HEENT: normocephalic , atraumatic, no discharge from ears or nose, no oropharyngeal erythema or exudate, Neck is supple, no lymphadenopathy, trachea midline CVS: RRR, normal S1n S2, no murmurs, rubs, or gallops, no edema, no jvd Resp:vesicular breath sounds bilaterally Abd : soft , epigastric tenderness, normal bowel sounds, no rebound tenderness or guarding MSK: no swelling, full range of motion, strength 5/5 PICC LINE Neuro: AOAx3, no confusion, no focal deficit Psych: normal mood and affect, good judgment LABORATORY DATA and Radiology Reviewed. ASSESSMENT AND PLAN: This is a 63 yo female with pmhx of DM2 and morbid obesity who presented to the ED for chills, rigors and generalized weakness which started yesterday. She said she was being treated for UTI but has not completed the treatment , and she is unsure when she started the treatment . She also did vomit (NBNB) yesterday and today , but has been able to keep some food down as well She denied fever, chest pain, sob, headache, abd pain, dysuria, hematuria, or diarrhea. She had one episode of soft stool yesterday. Of note Patient had gastric bypass Aug 01, 2018 and was Dc on Aug 08. Since Wednesday of this week she hasn't been feeling well. She went back to the hospital where she did the surgery and was told that if they kept her there, her insurance would not pay for the visit so she would have to pay out of pocket so she left. She came here on the night of the for the chills//rigors , was given ivf and abx and sent home, but on the the symptoms got worse so she came back here. Dizziness and weakness due to low normal blood sugars and low normal blood pressures which may be relatively low for her. probably as an effect of bariatric surgery with rapid weight loss SIRS with tmax 100.8 wbc 14 rr 21 and lactic acidosis s/p 5 days empiric vanco and zosyn No infection Could be due to recent bariatric surgery with very restricted diet, low blood sugars, low blood pressures due to severely reduced oral intake and not enough fluid intake causing added dehydration. Gout continue home meds. HLD continue home meds will probably be able to come of meds once her weight drops. DM sugars controlled without meds. PTSD and nonspecific depressive disorder DVT prophylaxis is in place. Disposition: Home in 1 to 2 days. VS,Fishbone, I+O VS, Fishbone, I+O Laboratory Tests 09/06/18 05:11 Red Blood Count 3.72 L, Mean Corpuscular Volume 94.9, Mean Corpuscular Hemoglobin 30.1, Mean Corpuscular Hemoglobin Concent 31.7 L, Red Cell Distribution Width 14.8 H, Calcium Level 8.1 L Vital Signs Date Time Temp Pulse Resp B/P (MAP) Pulse Ox O2 Delivery O2 Flow Rate FiO2 09/06/18 06:00 97.6 71 18 149/67 (94) 91 Room Air I&O- Last 24 Hours up to 6 AM 09/06/18 06:00 Intake Total 1380 ml Output Total 1300 ml Balance 80 ml MEHRDAD LEHMAN MD Sep 06, 2018 12:57
[2018-09-06 14:00] VITALS: BP 136/65
[2018-09-06 22:00] VITALS: BP 127/62
[2018-09-07 02:00] VITALS: BP 127/66
[2018-09-07] MEDS ORDERED: OCEA0.654 (02:32)
[2018-09-07] MEDS ORDERED: OMEP-221 PO (02:32)
[2018-09-07] MEDS ORDERED: BIOT1TAB2 PO (02:32)
[2018-09-07] MEDS ORDERED: B-12100T2 PO (02:32)
[2018-09-07] MEDS ORDERED: MILKSUS5 PO (02:32)
[2018-09-07] MEDS ORDERED: ACET1TAB55 PO (02:32)
[2018-09-07 02:33] VITALS: BP 127/66
[2018-09-07] MEDS: SODIUM CHLORIDE 0.9% INJ 10 ML SYR IV SCH (05:04)
[2018-09-07] MEDS: HEPARIN SOD (PORCINE) 5000 UNITS/ML VIAL SC SCH ×2 (05:04→14:35)
[2018-09-07 05:25] LABS: HEMATOCRIT 34.9 % (36.0-47.0); MEAN CORPUSCULAR HEMOGLOBIN 29.8 pg (27.0-33.0); MEAN CORPUSCULAR HGB CONC 31.5 g/dl (32.0-36.5); MEAN CORPUSCULAR VOLUME 94.6 fl (80.0-96.0); PLATELET COUNT, AUTOMATED 267 10^3/uL (150-450); RED BLOOD COUNT 3.69 10^6/uL (4.00-5.40); WHITE BLOOD COUNT 8.3 10^3/uL (4.0-10.0)
[2018-09-07 05:45] LABS: BLOOD UREA NITROGEN 8 MG/DL (7-18); CARBON DIOXIDE LEVEL 29 MEQ/L (21-32); CHLORIDE LEVEL 106 MEQ/L (98-107); CREATININE FOR GFR 0.59 MG/DL (0.55-1.30); GLOMERULAR FILTRATION RATE > 60.0 (>45); GLUCOSE, FASTING 87 MG/DL (70-100); POTASSIUM SERUM 3.9 MEQ/L (3.5-5.1); SODIUM LEVEL 142 MEQ/L (136-145)
[2018-09-07 06:00] VITALS: BP 120/56
[2018-09-07] MEDS: HumaLOG INSULIN (NovoLOG) PER UNIT SC SCH ×2 (07:16→12:30)
[2018-09-07] MEDS: ALLOPURINOL 300 MG TAB PO SCH (09:09)
[2018-09-07] MEDS: VITAMIN D 1,000 INTERNATIONAL UNITS TABLET PO SCH (09:09)
[2018-09-07] MEDS: MAGNESIUM OXIDE 400 MG TAB (MAG-OX) PO SCH (09:09)
[2018-09-07] MEDS: ATORVASTATIN 10 MG TAB PO SCH (09:09)
[2018-09-07] MEDS: SIMETHICONE 80 MG CHEW TAB PO SCH ×2 (09:09→14:04)
[2018-09-07] MEDS: SODIUM CHLORIDE NASAL 0.65% SPRAY BTL (OCEAN) SCH (09:10)
[2018-09-07] MEDS: SENOKOT S TAB PO SCH ×2 (09:10→09:13)
[2018-09-07] MEDS ORDERED: MULT1TAB10 PO (09:17)
[2018-09-07] MEDS ORDERED: D31000CA4 PO (09:17)
[2018-09-07] MEDS ORDERED: FLUC150T PO (15:48)
--- NOTE | 2018-09-07 23:19 | DS.PDOC ---
Discharge Summary General Date of Admission Aug 29, 2018 at 03:15 Date of Discharge 09/07/18 Attending Physician: MEHRDAD LEHMAN MD Specialist/Consultants Involve: Lisa Nur MD Discharge Summary PROCEDURES PERFORMED DURING STAY: [None]. DISCHARGE DIAGNOSES: Dizziness and weakness due to low blood pressures and low blood sugars on presentation do to recent bariatric surgery SIRS Morbid obesity s/p gastric bypass in july 2018 Hypertension resolved Diabetes resolving not on any meds PTSD with nonspecific depression Gout Hyperlipidemia Gait instability due to lower extremity muscle deconditioning as patient was using wheel chair prior to surgery. Diastolic dysfunction. COMPLICATIONS/CHIEF COMPLAINT: Postop Epigastric Abdominal Pain, Sepsis. HISTORY OF PRESENT ILLNESS: Please see history and physical HOSPITAL COURSE: SUBJECTIVE: This is a 63 yo female with pmhx of DM2 and morbid obesity who presented to the ED for chills, rigors and generalized weakness which started yesterday. She said she was being treated for UTI but has not completed the treatment , and she is unsure when she started the treatment . She also did vomit (NBNB) yesterday and today , but has been able to keep some food down as well She denied fever, chest pain, sob, headache, abd pain, dysuria, hematuria, or diarrhea. She had one episode of soft stool yesterday. Of note Patient had gastric bypass Aug 01, 2018 and was Dc on Aug 08. Since Wednesday of this week she hasn't been feeling well. She went back to the hospital where she did the surgery and was told that if they kept her there, her insurance would not pay for the visit so she would have to pay out of pocket so she left. She came here on the night of the for the chills//rigors , was given ivf and abx and sent home, but on the the symptoms got worse so she came back here. Dizziness and weakness due to low normal blood sugars and low normal blood pressures which may be relatively low for her. probably as an effect of bariatric surgery with rapid weight loss SIRS with tmax 100.8 wbc 14 rr 21 and lactic acidosis s/p 5 days empiric vanco and zosyn No infection Could be due to recent bariatric surgery with very restricted diet, low blood sugars, low blood pressures due to severely reduced oral intake and not enough fluid intake causing added dehydration. Gout continue home meds. HLD continue home meds will probably be able to come of meds once her weight drops. DM sugars controlled without meds. PTSD and nonspecific depressive disorder Seen by Dr Nur and [facility], has a therapist who she sees regularly. Should symptoms related to past traumas continue persisting, the patient ought to see a psychiatrist for an assessment, which can be arranged by the [place]. DISCHARGE MEDICATIONS: Please see below. ALLERGIES: Please see below. PHYSICAL EXAMINATION ON DISCHARGE: VITAL SIGNS: Please see below. Gen: NAD, morbidly obese HEENT: normocephalic , atraumatic, no discharge from ears or nose, no oropharyngeal erythema or exudate, Neck is supple, no lymphadenopathy, trachea midline CVS: RRR, normal S1n S2, no murmurs, rubs, or gallops, no edema, no jvd Resp:vesicular breath sounds bilaterally Abd : soft , epigastric tenderness, normal bowel sounds, no rebound tenderness or guarding MSK: no swelling, full range of motion, strength 5/5 PICC LINE Neuro: AOAx3, no confusion, no focal deficit Psych: normal mood and affect, good judgment LABORATORY DATA: Please see below. ACTIVITY: As tolerated DIET: Bariatric diet DISCHARGE PLAN: Home DISPOSITION: home DISCHARGE INSTRUCTIONS: Follow up with pmd in 1 week follow up with therapist at [place] follow up with bariatric surgeon as per their instruction. DISCHARGE CONDITION: Stable TIME SPENT ON DISCHARGE: Greater than 30 minutes. Vital Signs/I&Os Vital Signs Date Time Temp Pulse Resp B/P (MAP) Pulse Ox O2 Delivery O2 Flow Rate FiO2 09/07/18 06:00 98.3 65 60 120/56 (77) 97 Room Air I&O- Last 24 Hours up to 6 AM 09/07/18 06:00 Intake Total 200 ml Output Total 650 ml Balance -450 ml Laboratory Data Labs 24H Laboratory Tests 2 09/06/18 11:41: Bedside Glucose (Misc Panel) 103 09/06/18 16:43: Bedside Glucose (Misc Panel) 95 09/06/18 21:34: Bedside Glucose (Misc Panel) 130H 09/07/18 05:03: Nucleated Red Blood Cells % (auto) 0.0, Anion Gap 7L, Glomerular Filtration Rate > 60.0, Blood Urea Nitrogen 8, Creatinine 0.59, Sodium Level 142, Potassium Level 3.9, Chloride Level 106, Carbon Dioxide Level 29, Calcium Level 8.0L CBC/BMP Laboratory Tests 09/07/18 05:03 Red Blood Count 3.69 L, Mean Corpuscular Volume 94.6, Mean Corpuscular Hemoglobin 29.8, Mean Corpuscular Hemoglobin Concent 31.5 L, Red Cell Distribution Width 14.8 H, Calcium Level 8.0 L FSBS Laboratory Tests Test 09/06/18 11:41 09/06/18 16:43 09/06/18 21:34 Range/Units Bedside Glucose (Misc Panel) 103 95 130 80-115 MG/DL Microbiology Microbiology 08/29/18 Blood Culture - Final, Complete NO GROWTH AFTER 5 DAYS 08/30/18 MRSA Screen - Final, Complete 08/30/18 Respiratory Virus Panel (PCR) ([facility]) - Final, Complete 08/29/18 Urine Culture - Final, Complete Discharge Medications Scheduled Allopurinol (Zyloprim) 300 Mg Tab, 150 MG PO DAILY, (Reported) Atorvastatin Calcium (Atorvastatin Calcium) 10 Mg Tab, 10 MG PO DAILY, (Reported) Cholecalciferol (D3) 1,000 Unit Cap, 1 CAP PO DAILY, (Reported) Cyanocobalamin (B-12) 100 Mcg Tab, 500 MCG PO DAILY, (Reported) Famotidine (Pepcid) 20 Mg Tab, 20 MG PO BID, (Reported) Fluconazole (Fluconazole) 150 Mg Tab, 150 MG PO ONCE for yeast infection 1 tab on 09/08/18 and second tab on 09/11/18 Magnesium Hydroxide (Milk of Magnesia 400 mg/5Ml) 1 Shila Shila, 15 ML PO DAILY for constipation, (Reported) Magnesium Oxide (Magnesium Oxide 400) 400 Mg Tab, 400 MG PO BID, (Reported) Multivitamins (Multivitamin Adults) 1 Tab Tab, 2 TAB PO DAILY, (Reported) Omeprazole (Omeprazole Dr) 40 Mg Cap, 40 MG PO DAILY, (Reported) Potassium Citrate (Potassium Citrate 10MEQ (Urocit-K)) 1,080 Mg Tab, 10 MEQ BID, (Reported) Simethicone (Simethicone) 40 Mg Halftab, 80 MG PO QID for gas, (Reported) Sodium Chloride ([place] [facility]) 0.65 % Spr, 2 SPRAY NA PRN, (Reported) EACH NOSTRIL Vitamin D (Vitamin D) 1,000 Unit Cap, 1,000 UNIT PO DAILY, (Reported) Scheduled PRN Acetaminophen (Acetaminophen) 325 Mg Tab, 650 MG PO Q6HP PRN for PAIN OR FEVER, (Reported) Ondansetron (Ondansetron Odt) 4 Mg Tab, 4 MG PO Q4H PRN for NAUSEA, (Reported) Miscellaneous Medications (Biotin Plus Keratin 64393-225 Mcg-mg) 1 Tab Tab, 1 TAB PO, (Reported) Allergies Coded Allergies: Cefuroxime (Verified Allergy, Severe, THROAT SWELLED DIFF BREATHING, ) Codeine (Verified Allergy, Severe, THROAT SWELLED, 09/27/17) Lurasidone (Verified Allergy, Unknown, 09/27/17) MEHRDAD LEHMAN MD Sep 07, 2018 11:44
== END 2018-09-07 15:15 | disposition home or self-care (01) | DRG 425 ==
LOC: M ED 22:29 → M ED INP 08-29 03:15 → M PCU 08-29 16:42 → M MS5PR 08-30 18:27
PROVIDERS: ADMIT Internal Medicine; ATTEND Internal Medicine Nephrology
PROC: 02HV33Z Insertion of Infusion Device into Superior Vena Cava, Percutaneous Approach (ICD-10-PCS; principal; 2018-08-30)
DX: E87.2 Acidosis (principal); R65.10 Systemic inflammatory response syndrome (SIRS) of non-infectious origin without acute organ dysfunction; E66.01 Morbid (severe) obesity due to excess calories; Z68.41 Body mass index [BMI] 40.0-44.9, adult; E11.9 Type 2 diabetes mellitus without complications; M10.9 Gout, unspecified; F43.10 Post-traumatic stress disorder, unspecified; R42 Dizziness and giddiness; E78.5 Hyperlipidemia, unspecified; F32.89 Other specified depressive episodes; R26.89 Other abnormalities of gait and mobility; Z79.899 Other long term (current) drug therapy; Z88.5 Allergy status to narcotic agent; Z88.1 Allergy status to other antibiotic agents; Z88.8 Allergy status to other drugs, medicaments and biological substances; Z98.84 Bariatric surgery status; Z91.410 Personal history of adult physical and sexual abuse; Z63.0 Problems in relationship with spouse or partner

== ENCOUNTER → 2018-09-12 | Outpatient (CLI) | payer OTHER ==
[~2018-09-12] MED LIST changes: +ACET1TAB55 PO; +B-12100T2 PO; +BIOT1TAB2 PO; +D31000CA4 PO; +FLUC150T PO; +MAGN400T5 PO; +MILKSUS5 PO; +MULT1TAB10 PO; +NITR100C2 PO; +OCEA0.654; +OMEP-221 PO; +ONDA4TAB6 PO
--- NOTE | 2018-09-12 15:24 | REP ---
KUB, ONE VIEW: HISTORY: Left upper quadrant pain. A small amount of air is present in the small and large intestine. There are no air fluid levels or dilated loops of intestine. There is no pneumoperitoneum. IMPRESSION: Nonspecific bowel gas pattern. Electronically Signed by Pablito Goldsmith MD 09/12/2018 03:28 P
== END ==
LOC: M WUC 15:05
PROVIDERS: ATTEND Internal Medicine
DX: R10.9 Unspecified abdominal pain (principal)

== ENCOUNTER → 2019-05-03 | Outpatient (CLI) | payer OTHER | LOC: M RAD 14:09 | PROVIDERS: ATTEND Physician Assistant Medical | DX: Z12.31 Encounter for screening mammogram for malignant neoplasm of breast (principal); Z53.8 Procedure and treatment not carried out for other reasons ==

== ENCOUNTER → 2019-05-19 | Outpatient (CLI) | payer OTHER ==
--- NOTE | 2019-05-19 16:16 | REP ---
BILATERAL MAMMOGRAM WITH 3D TOMOSYNTHESIS AND BILATERAL BREAST ULTRASOUND: HISTORY: Bilateral nipple discharge for years, greenish-brown in color. No family history of breast cancer. [facility] lifetime risk of breast cancer 5.5%. There are no prior studies for comparison. MLO and CC views of both breasts performed with 3D tomosynthesis. There is mild scattered fibroglandular tissue present. There is a rounded well-circumscribed nodule in the outer right breast measuring about 7 mm in diameter. No other mass or clustered microcalcifications are seen. Real-time sonographic evaluation of bilateral retroareolar regions performed, demonstrating no cystic or solid nodule. There are mildly dilated ducts in each retroareolar region. Real-time sonographic evaluation of the outer right breast performed at the site of the well-circumscribed nodule. There is a morphologically normal lymph node measuring 7 x 4 x 6 mm corresponding to the mammographic abnormality. IMPRESSION: ACR 2 benign. In the outer right breast there is a subcentimeter lymph node identified both mammographically and sonographically. No retroareolar region abnormalities bilaterally except for mildly dilated ducts in both the right breast and left breast. No other evidence of mass or clustered microcalcifications. Suggest followup mammogram in one year. BIRADS 2: BI-RADS/ACR category 2 mammogram. Benign Findings. This mammogram was interpreted with the aid of an FDA-approved computer-aided detection system. The patient states she/he has not had a clinical breast exam in over a year. The patient letter being requested is M2. Electronically Signed by Rashel Wong MD 05/22/2019 04:26 P
== END ==
LOC: M RAD 12:57
PROVIDERS: ATTEND Physician Assistant Medical
DX: Z12.31 Encounter for screening mammogram for malignant neoplasm of breast (principal); N64.52 Nipple discharge
CPT/HCPCS: 76642; 77066; G0279

== ENCOUNTER → 2020-07-12 | Outpatient (CLI) | payer OTHER ==
[~2020-07-12] MED LIST changes: -PANT20TA2 PO; +PANT20TA6 PO; +PANT40TA29 PO; -PANT40TA3 PO
--- NOTE | 2020-07-12 13:52 | REPMRS ---
Patient History The patient states she has not had a clinical breast exam in over a year. Family history of unknown cancer in maternal grandfather. 3D TOMOSYNTHESIS WAS PERFORMED. [facility] Volpara breast density b. Digital Woman Screen Mammo: July 12, 2020 - Exam #: [id number] Bilateral CC and MLO view(s) were taken. Technologist: Freda Fuentes, Technologist Prior study comparison: May 19, 2019, digital mammo diagnostic bilateral, performed at [facility]. FINDINGS: There are scattered fibroglandular densities. There has been no change in the appearance of the mammogram from the prior studies. There is a mild amount of residual fibroglandular tissue which is fairly symmetric. There is no interval development of dominant mass, architectural distortion, or clustered microcalcification suggestive of malignancy. Assessment: BI-RADS/ACR category 1 mammogram. Negative Mammogram. Recommendation Routine screening mammogram in 1 year (for women over age 40). This mammogram was interpreted with the aid of an FDA-approved computer-aided dectection system. Electronically Signed By: Rashel Wong MD 07/12/20 0161
== END ==
LOC: M WHC 13:02
PROVIDERS: ATTEND Physician Assistant Medical
DX: Z12.31 Encounter for screening mammogram for malignant neoplasm of breast (principal)

== ENCOUNTER → 2021-08-20 | Outpatient (CLI) | payer OTHER ==
[~2021-08-20] MED LIST changes: +LISI10TA22 PO; -LISI10TA4 PO; -SIME40TA PO; +SIME80CH6 PO
--- NOTE | 2021-08-20 15:40 | REPMRS ---
Patient History The patient states she has not had a clinical breast exam in over a year. Family history of unknown cancer in maternal grandfather. Tomosynthesis is performed. Volpara breast density is b. Tyrer-Cuzick lifetime risk of breast cancer 5.0%. Patient states no breast complaints today. Patient has signed MRS History Sheet. Digital Woman Screen Mammo: August 20, 2021 - Exam #: [id number] Bilateral CC and MLO view(s) were taken. Technologist: RT Nikko Prior study comparison: July 12, 2020, bilateral digital woman screen mammo performed at [facility]. May 19, 2019, digital mammo diagnostic bilateral, performed at [facility]. FINDINGS: There are scattered fibroglandular densities. There has been no change in the appearance of the mammogram from the prior studies. There is a mild amount of residual fibroglandular tissue which is fairly symmetric. There is no interval development of dominant mass, architectural distortion, or clustered microcalcification suggestive of malignancy. Assessment: BI-RADS/ACR category 1 mammogram. Negative Mammogram. Recommendation Routine screening mammogram in 1 year (for women over age 40). This mammogram was interpreted with the aid of an FDA-approved computer-aided dectection system. Electronically Signed By: Rashel Wong MD 08/20/21 [id number]
== END ==
LOC: M WHC 13:54
PROVIDERS: ATTEND Physician Assistant Medical
DX: Z12.31 Encounter for screening mammogram for malignant neoplasm of breast (principal)

== ENCOUNTER → 2021-08-21 | Outpatient (REF) | payer OTHER, MEDICAID | LOC: M LAB REF 13:05 | PROVIDERS: ATTEND Nurse Practitioner Family | DX: K91.2 Postsurgical malabsorption, not elsewhere classified (principal) ==

== ENCOUNTER 2022-06-30 00:36 | Emergency (ER) | payer MEDICARE, OTHER ==
[~2022-06-30] VITALS: Ht 160 cm; Wt 95.5 kg
[~2022-06-30 00:36] MED LIST changes: -FLUC150T PO; +FLUC150T9 PO; -OMEP-221 PO; +OMEP40CA5 PO
[2022-06-30 01:53] LABS: BASO % 0.6 % (0.0-1.0); EOS # 0.1 10^3/uL (0.0-0.5); EOS % 1.1 % (0.0-3.0); HEMOGLOBIN 13.8 g/dl (12.0-15.5); LYMPH # 2.9 10^3/uL (1.5-5.0); MEAN CORPUSCULAR HEMOGLOBIN 30.1 pg (27.0-33.0); MEAN CORPUSCULAR HGB CONC 32.1 g/dl (32.0-36.5); MEAN CORPUSCULAR VOLUME 93.7 fl (80.0-96.0); MONO # 0.6 10^3/uL (0.0-0.8); MONO % 7.6 % (2.0-8.0); NEUTROPHILS # 3.6 10^3/uL (1.5-8.5); NEUTROPHILS % 50.4 % (36.0-66.0); PLATELET COUNT, AUTOMATED 260 10^3/uL (150-450); RED BLOOD COUNT 4.59 10^6/uL (4.00-5.40); WHITE BLOOD COUNT 7.2 10^3/uL (4.0-10.0)
[2022-06-30 02:27] LABS: RSV AMPLIFICATION NEGATIVE (NEGATIVE)
[2022-06-30 02:32] LABS: ALBUMIN 3.5 GM/DL (3.2-5.2); ALT/SGPT 24 U/L (12-78); BILIRUBIN,DIRECT < 0.1 MG/DL (0.0-0.2); BILIRUBIN,TOTAL 0.2 MG/DL (0.2-1.0); BLOOD UREA NITROGEN 25 MG/DL (7-18); CALCIUM LEVEL 8.9 MG/DL (8.8-10.2); CARBON DIOXIDE LEVEL 25 MEQ/L (21-32); CHLORIDE LEVEL 106 MEQ/L (98-107); CREATININE FOR GFR 0.83 MG/DL (0.55-1.30); GLOMERULAR FILTRATION RATE > 60.0 (>45); GLUCOSE, FASTING 126 MG/DL (70-100); LIPASE 186 U/L (73-393); NT-PRO BNP 28 PG/ML (<125); POTASSIUM SERUM 4.2 MEQ/L (3.5-5.1); SODIUM LEVEL 141 MEQ/L (136-145); TOTAL PROTEIN 6.7 GM/DL (6.4-8.2)
[2022-06-30 02:38] LABS: CK-MB VALUE MASS 1.5 NG/ML (<3.6); MB/CK RELATIVE INDEX 1.39 (< OR =4)
[2022-06-30 03:38] LABS: CK-MB VALUE MASS 1.2 NG/ML (<3.6); MB/CK RELATIVE INDEX 1.18 (< OR =4)
[2022-06-30 04:00] VITALS: BP 153/70
== END 2022-06-30 05:28 | disposition home or self-care (01) ==
LOC: EDBD 00:36 → M ED 00:36
DX: U07.1 COVID-19 (principal); M79.10 Myalgia, unspecified site; E78.5 Hyperlipidemia, unspecified; K21.9 Gastro-esophageal reflux disease without esophagitis; Z98.84 Bariatric surgery status; Z79.899 Other long term (current) drug therapy; Z88.5 Allergy status to narcotic agent; Z88.8 Allergy status to other drugs, medicaments and biological substances

== ENCOUNTER → 2022-09-21 | Outpatient (CLI) | payer MEDICAID, MEDICARE, OTHER | LOC: M WHC 12:01 | PROVIDERS: ATTEND Physician Assistant Medical | DX: Z12.31 Encounter for screening mammogram for malignant neoplasm of breast (principal) ==

== ENCOUNTER 2022-11-22 14:26 | Emergency (ER) | payer MEDICARE, OTHER ==
[~2022-11-22] VITALS: Ht 160 cm; Wt 111.4 kg
[2022-11-22 14:27] VITALS: BP 132/60
[2022-11-22] MEDS ORDERED: ACETAMINOPHEN TAB 650MG DOSE (2X325MG) PO ONE (15:30)
== END 2022-11-22 17:16 | disposition home or self-care (01) ==
LOC: M ED 14:26
DX: S42.254A Nondisplaced fracture of greater tuberosity of right humerus, initial encounter for closed fracture (principal); W01.10XA Fall on same level from slipping, tripping and stumbling with subsequent striking against unspecified object, initial encounter; Y92.019 Unspecified place in single-family (private) house as the place of occurrence of the external cause; Y93.01 Activity, walking, marching and hiking; Y99.8 Other external cause status; I10 Essential (primary) hypertension; E11.9 Type 2 diabetes mellitus without complications; N18.9 Chronic kidney disease, unspecified; G47.33 Obstructive sleep apnea (adult) (pediatric); I25.10 Atherosclerotic heart disease of native coronary artery without angina pectoris; Z79.899 Other long term (current) drug therapy

== ENCOUNTER 2023-03-25 20:24 | Emergency (ER) | payer MEDICARE, OTHER ==
[~2023-03-25] VITALS: Ht 160 cm; Wt 109.1 kg
[2023-03-25 21:15] LABS: BASO # 0.1 10^3/uL (0.0-0.2); BASO % 0.6 % (0.0-1.0); EOS # 0.1 10^3/uL (0.0-0.5); EOS % 1.1 % (0.0-3.0); HEMATOCRIT 44.6 % (36.0-47.0); HEMOGLOBIN 13.9 g/dl (12.0-15.5); LYMPH # 2.1 10^3/uL (1.5-5.0); LYMPH % 19.6 % (24.0-44.0); MEAN CORPUSCULAR HEMOGLOBIN 30.2 pg (27.0-33.0); MEAN CORPUSCULAR HGB CONC 31.2 g/dl (32.0-36.5); MONO # 0.8 10^3/uL (0.0-0.8); MONO % 7.3 % (2.0-8.0); NEUTROPHILS # 7.7 10^3/uL (1.5-8.5); NEUTROPHILS % 71.1 % (36.0-66.0); PLATELET COUNT, AUTOMATED 316 10^3/uL (150-450); WHITE BLOOD COUNT 10.8 10^3/uL (4.0-10.0)
[2023-03-25 21:28] LABS: INR 0.91; PROTHROMBIN TIME 12.5 SECONDS (12.5-14.5)
[2023-03-25 21:29] LABS: PARTIAL THROMBOPLASTIN TIME 27.3 SECONDS (24.8-34.2)
[2023-03-25 21:55] LABS: CK-MB VALUE MASS 1.3 NG/ML (<3.6)
[2023-03-25 21:58] LABS: THYROID STIMULATING HORMONE 0.964 uIU/ML (0.55-4.78)
[2023-03-25 22:06] LABS: BLOOD UREA NITROGEN 22 MG/DL (9-23); CALCIUM LEVEL 9.3 MG/DL (8.3-10.6); CARBON DIOXIDE LEVEL 26 MMOL/L (20-31); CHLORIDE LEVEL 107 MMOL/L (98-107); CPK CREATINE PHOSPHOKINASE 103 U/L (34-145); CREATININE FOR GFR 0.83 MG/DL (0.55-1.30); GLOMERULAR FILTRATION RATE > 60.0 (>45); GLUCOSE, FASTING 63 MG/DL (74-106); MB/CK RELATIVE INDEX 1.26 (< OR =4); POTASSIUM SERUM 4.9 MMOL/L (3.5-5.1); SODIUM LEVEL 144 MMOL/L (136-145)
[2023-03-26] MEDS ORDERED: ONDANSETRON 4MG 2ML VIAL IV ONE (01:00)
[2023-03-26] MEDS ORDERED: NS 1,000 ML IV ONE (01:00)
[2023-03-26 01:44] LABS: CK-MB VALUE MASS 1.1 NG/ML (<3.6)
[2023-03-26 01:49] LABS: MB/CK RELATIVE INDEX 1.29 (< OR =4)
[2023-03-26 03:02] LABS: CK-MB VALUE MASS 1.1 NG/ML (<3.6)
[2023-03-26 03:15] VITALS: BP 134/88; TEMP 98.8; O2SAT 95
[2023-03-26 03:35] LABS: MB/CK RELATIVE INDEX 1.42 (< OR =4)
[2023-03-26 09:52] LABS: MAGNESIUM LEVEL 1.8 MG/DL (1.8-2.4)
== END 2023-03-26 03:24 | disposition home or self-care (01) ==
LOC: M ED 20:24
DX: R07.89 Other chest pain (principal); E78.5 Hyperlipidemia, unspecified; E16.2 Hypoglycemia, unspecified; Z98.84 Bariatric surgery status; Z88.5 Allergy status to narcotic agent; Z88.8 Allergy status to other drugs, medicaments and biological substances; Z79.899 Other long term (current) drug therapy
CPT/HCPCS: 70450; 71045; 80048; 82550; 82553; 83735; 84443; 84484; 85025; 85610; 85730; 87486; 87581; 87633; 87798; 93005; 93041; 94760; 96374; 99285; J2405

== ENCOUNTER → 2023-05-06 | Outpatient (CLI) | payer MEDICARE, OTHER ==
[2023-05-06 13:31] LABS: HEMATOCRIT 48.8 % (36.0-47.0); HEMOGLOBIN 14.8 g/dl (12.0-15.5); MEAN CORPUSCULAR HEMOGLOBIN 30.5 pg (27.0-33.0); MEAN CORPUSCULAR HGB CONC 30.3 g/dl (32.0-36.5); MEAN CORPUSCULAR VOLUME 100.6 fl (80.0-96.0); PLATELET COUNT, AUTOMATED 249 10^3/uL (150-450); RED BLOOD COUNT 4.85 10^6/uL (4.00-5.40); WHITE BLOOD COUNT 5.2 10^3/uL (4.0-10.0)
[2023-05-06 13:37] LABS: ALBUMIN 3.4 G/DL (3.2-5.2); ALKALINE PHOSPHATASE 117 U/L (46-116); ALT/SGPT 28 U/L (7.0-40); AST/SGOT 16 U/L (<34); BILIRUBIN,TOTAL 0.4 MG/DL (0.3-1.2); BLOOD UREA NITROGEN 21 MG/DL (9-23); CARBON DIOXIDE LEVEL 32 MMOL/L (20-31); CHLORIDE LEVEL 106 MMOL/L (98-107); CHOLESTEROL LEVEL 170 MG/DL (<200); CHOLESTEROL RISK RATIO 2.81 (<5); CREATININE FOR GFR 0.89 MG/DL (0.55-1.30); GLOMERULAR FILTRATION RATE > 60.0 (>45); GLUCOSE, FASTING 91 MG/DL (74-106); HDL CHOLESTEROL 60.3 MG/DL (>40); LDL CHOLESTEROL 91.3 MG/DL (<100); NON-HDL-C 109.7 MG/DL; POTASSIUM SERUM 4.8 MMOL/L (3.5-5.1); SODIUM LEVEL 144 MMOL/L (136-145); TOTAL PROTEIN 6.1 G/DL (5.7-8.2); TRIGLYCERIDES LEVEL 92 MG/DL (<150)
[2023-05-08 19:10] LABS: URIC ACID 5.2 MG/DL (3.1-7.8)
== END ==
LOC: M LAB 11:57
PROVIDERS: ATTEND Physician Assistant
DX: E78.5 Hyperlipidemia, unspecified (principal); M10.9 Gout, unspecified; G47.62 Sleep related leg cramps; Z98.84 Bariatric surgery status

== ENCOUNTER → 2023-07-26 | Outpatient (CLI) | payer MEDICAID, MEDICARE, OTHER | LOC: M RAD 11:15 | PROVIDERS: ATTEND Physician Assistant | DX: D44.0 Neoplasm of uncertain behavior of thyroid gland (principal) ==

== ENCOUNTER → 2023-10-15 | Outpatient (CLI) | payer MEDICAID, MEDICARE, OTHER | LOC: M WHC 10:39 | PROVIDERS: ATTEND Physician Assistant Medical | DX: Z12.31 Encounter for screening mammogram for malignant neoplasm of breast (principal) ==

== ENCOUNTER 2024-02-12 21:59 | Emergency (ER) | payer MEDICARE, OTHER ==
[~2024-02-12] VITALS: Ht 160 cm; Wt 108.6 kg
[~2024-02-12 21:59] MED LIST changes: +ONDA-282 PO; -ONDA4TAB6 PO
[2024-02-12] MEDS: ACETAMINOPHEN TAB 650MG DOSE (2X325MG) PO ONE (23:53)
[2024-02-12] MEDS: BOOSTRIX VACCINE (TETANUS/DIPHTH/ACEL. PERTUSSIS) 0.5ML SYR IM ONE (23:54)
[2024-02-13] MEDS ORDERED: PRED20TA PO (02:43)
[2024-02-13 03:18] VITALS: BP 131/72; TEMP 97.7; O2SAT 97
== END 2024-02-13 03:23 | disposition home or self-care (01) ==
LOC: M ED 21:59
DX: S80.01XA Contusion of right knee, initial encounter (principal); S00.81XA Abrasion of other part of head, initial encounter; Y92.524 Gas station as the place of occurrence of the external cause; Y93.9 Activity, unspecified; Y99.9 Unspecified external cause status; W10.1XXA Fall (on)(from) sidewalk curb, initial encounter; F10.10 Alcohol abuse, uncomplicated; Z88.8 Allergy status to other drugs, medicaments and biological substances; Z88.5 Allergy status to narcotic agent; Z79.1 Long term (current) use of non-steroidal anti-inflammatories (NSAID); Z79.810 Long term (current) use of selective estrogen receptor modulators (SERMs); Z79.52 Long term (current) use of systemic steroids; Z79.899 Other long term (current) drug therapy; Z23 Encounter for immunization

== ENCOUNTER → 2024-10-17 | Outpatient (CLI) | payer OTHER, MEDICARE ==
[~2024-10-17] MED LIST changes: -CELE50CA PO; +CELE50CA17 PO; -POTA10808; +POTA10809; +PRED20TA PO
== END ==
LOC: M WHC 12:09
PROVIDERS: ATTEND Physician Assistant Medical
DX: Z12.31 Encounter for screening mammogram for malignant neoplasm of breast (principal)